=== PATIENT | female | born 1930 | race Caucasian/White ===

== ENCOUNTER 2016-12-27 11:03 | Inpatient (IN) | payer OTHER ==
[~2016-12-27] VITALS: Ht 147.3 cm; Wt 60.5 kg
[2016-12-27] MEDS ORDERED: METOPROLOL TARTRATE 1 MG/ML VIAL IV STA ×2 (11:21→22:26)
--- NOTE | 2016-12-27 11:25 | EMERGENCY ROOM VISIT NOTE ---
History Report prepared by Chanell: Zenaida Barrow Under the Supervision of: Dr. Darlene Purvis M.D. First contact with patient: 11:16 Chief Complaint: TACHYCARDIA Stated Complaint: TACYCARDIA Nursing Triage Summary: pt to [facility] ED via EMS from home where she felt like her heart was racing yesterday and then today she felt it again. EMS found her to be HR 190 and they gave 6mg adensine and she went into a fib then her heart rate went to 170 and they gave her 10mg cardizem IVP and they also gave 900 ml NS pt has no c/o chest pain but c/o feeling flushed no SOB just c/o "feeling nervous" History of Present Illness The patient is a 86 year old female who presents to the Emergency Room via EMS with complaints of episodic heart racing that began a couple of days ago. She had one episode of heart racing a couple of days ago which resolved on its own and another episode today when she called EMS. Today's episode seemed to be worse and would not go away. In the field, her heart rate was found to be 190. She was given 6 mg Adenosine en route. Currently, she is feeling slightly dizzy. She also complains of sinus congestion over the past several days for which she has been using Sinex and allergy medications without much relief. Denies fever, shortness of breath, or other complaints. She is on Lisinopril for hypertension. She is a former smoker of 25 years. Source of History: patient Onset: a couple days ago Position: other (cardiac) Quality: other (heart racing) Timing: other (episodic) Note: Other symptoms: dizziness, sinus congestion Review of Systems See HPI for pertinent positives & negatives. A total of 10 systems reviewed and were otherwise negative. Past Medical & Surgical Medical Problems: (1) Hypertension Family History Noncontributory secondary to age. Social History Smoking Status: Former Smoker Marital Status: Housing Status: lives alone Occupation Status: retired Current/Historical Medications Scheduled Lisinopril (Zestril), 5 MG PO DAILY Lutein-Zeaxanthin (Lutein), 1 TAB PO DAILY Misc Natural Products (Osteo Bi-Flex Advanced Do), 1 TAB PO DAILY Multiple Vitamins W/ Minerals (Centrum), 1 TAB PO DAILY Ubiquinol-Vitamin C (Active-Q), 1 TAB PO DAILY Vitamin E (E 1000), 1,000 UNIT PO DAILY Miscellaneous Medications Estrogens, Conjugated (Premarin) Allergies Coded Allergies: No Known Allergies (Unverified , 12/27/16) Physical Exam Vital Signs Date Time Temp Pulse Resp B/P Pulse Ox O2 Delivery O2 Flow Rate FiO2 12/27/16 15:30 77 22 191/108 97 2.0 12/27/16 14:45 98 22 191/112 99 Room Air 2.0 12/27/16 13:27 89 178/87 97 12/27/16 13:07 78 12/27/16 13:02 72 22 168/118 98 2.0 12/27/16 12:45 94 Nasal Cannula 2.0 12/27/16 12:44 84 Room Air 12/27/16 12:36 95 24 193/111 93 Room Air 12/27/16 12:07 80 24 177/97 96 12/27/16 11:52 87 22 187/102 96 12/27/16 11:42 115 180/94 12/27/16 11:41 117 180/94 96 Room Air 12/27/16 11:18 112 12/27/16 11:09 36.8 102 24 165/130 97 Room Air Physical Exam Vital signs reviewed. General: Elderly, well-appearing 86 year old female, in no significant distress. HEENT: No scleral icterus, PERRLA, neck supple. Atraumatic. Cardiovascular: Tachycardic rate and irregular rhythm, no extra sounds. Pulmonary: Crackles at the bases auscultation bilaterally, normal work of breathing. Abdomen: Soft, nontender, nondistended, positive bowel sounds. Musculoskeletal: Atraumatic, no peripheral edema. Neurologic: Patient awake alert and oriented x 3, full strength in all 4 extremities. Cranial nerves 2 through 12 grossly intact. Skin: Warm, dry, no rash Medical Decision & Procedures ER Provider Diagnostic Interpretation: Radiology results as stated below per my review and radiologist interpretation: CHEST ONE VIEW PORTABLE CLINICAL HISTORY: Rapid A. fib. Tachycardia. COMPARISON STUDY: No previous studies for comparison. FINDINGS: The heart is enlarged. There is tortuosity and aneurysmal dilatation of the thoracic aorta. There is age-indeterminate essential thickening. There is no lobar consolidation. No pleural effusions are visualized on conventional radiographic imaging.[ IMPRESSION: 1. Cardiomegaly and age-indeterminate interstitial thickening/edema 2. No evidence of lobar consolidation 3. Tortuosity and aneurysmal dilatation of the thoracic aorta Electronically signed by: Eloy Zaragoza M.D. 12/27/2016 12:23 PM Dictated Date/Time: 12/27/2016 12:[address] ANGIOGRAM OF THE CHEST COMBO CLINICAL HISTORY: Tachycardia. Aneurysm. COMPARISON STUDY: Chest x-ray dated 12/27/2016. TECHNIQUE: Before and following the IV administration of 119 cc of Optiray 320, CT angiogram of the chest was performed from the thoracic inlet to the upper abdomen utilizing the dissection protocol. Images are reviewed in the axial, sagittal, and coronal planes. 3-D MIPS images are created and assessed. IV contrast was administered without complication. CT DOSE: 499.63 mGy.cm FINDINGS: Thyroid: Imaged portions of the thyroid gland are normal in size and attenuation. Thoracic aorta: No intramural hematoma is seen on the unenhanced series. There is atherosclerotic calcification of the thoracic aorta. There is mild aneurysmal dilatation of the ascending thoracic aorta which measures up to 4.1 cm. The aortic arch is normal in caliber, measuring up to 2.9 cm in diameter. There is a large aneurysm of the tortuous descending thoracic aorta which extends at least 20 cm in craniocaudal length. This measures up to 5.0 cm just distal to the takeoff of the left subclavian artery. The proximal descending thoracic aorta measures up to 6.4 cm, the mid descending thoracic aorta measures up to 5.9 cm, the distal descending thoracic aorta measures up to 5.2 cm, and the aorta measures up to 3.6 cm at the diaphragmatic hiatus. There is intraluminal thrombus identified within the aneurysm sac proximally. No dissection is seen. The arch demonstrates standard 3-vessel anatomy and the arch vessels are widely patent. Pulmonary vasculature: The main pulmonary arteries are mildly dilated suggesting pulmonary artery hypertension. There are no central filling defects identified in the pulmonary vessels to suggest pulmonary embolus. Note that this examination was not specifically protocoled to assess for pulmonary emboli. Heart: The heart is enlarged and without pericardial effusion. There is lipomatous hypertrophy of the interatrial septum. The coronary arteries are densely calcified. There is diminished attenuation of the cardiac blood pool as compared to the myocardium suggesting anemia. Lungs and pleural spaces: There is diffuse subpleural reticulation and interstitial thickening throughout both lungs. No airspace consolidation is seen typical for pneumonia. There is trace pleural fluid at the right lung base. No left pleural effusion is seen. Dependent atelectasis is observed. A 6 cm calcification containing nodule is noted in the right apex on image #59. The trachea and central airways are clear. Mediastinum: Scattered subcentimeter mediastinal lymph nodes are not pathologically enlarged by size criteria. Gale: Clear. Axillae: There is no axillary lymphadenopathy. Upper abdomen: There is a large hiatal hernia, with over half of the stomach located in the thoracic cavity. The visualized kidneys to insert cortical atrophy. There is fatty atrophy of the partially imaged pancreas. The visualized upper abdominal aorta is normal in caliber. A subcentimeter cyst is noted in the left lobe of liver. Skeletal structures: The skeletal structures are osteopenic. Degenerative change and hyperkyphosis is noted the thoracic spine. Advanced arthritic change is seen in the shoulders. No lytic or blastic bony lesions are seen. IMPRESSION: 1. 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 This measures up to 6.4 cm in diameter. Vascular surgery assessment is recommended. 2. No dissection is seen and there is no evidence of aneurysm rupture. 3. There is trace pleural fluid at the right lung base adjacent to the aneurysm sac. This is nonspecific and likely reactive. Minimal leakage from the aneurysm would be impossible to exclude but is considered unlikely if there is no history of chest pain. 4. Chronic interstitial changes as above. No airspace consolidation is seen typical for pneumonia. 5. Cardiomegaly. 6. Large hiatal hernia. 7. Additional findings as above. Electronically signed by: Bola Martinez M.D. 12/27/2016 1:55 PM Dictated Date/Time: 12/27/2016 1:31 PM Laboratory Results Test 12/27/16 11:15 12/27/16 11:41 12/27/16 11:59 Immature Granulocyte % (Auto) 0.2 % White Blood Count 8.31 K/uL (4.8-10.8) Red Blood Count 4.15 M/uL (4.2-5.4) Hemoglobin 10.9 g/dL (12.0-16.0) Hematocrit 34.1 % (37-47) Mean Corpuscular Volume 82.2 fL (80-100) Mean Corpuscular Hemoglobin 26.3 pg (25-34) Mean Corpuscular Hemoglobin Concent 32.0 g/dl (32-36) Platelet Count 365 K/uL (130-400) Mean Platelet Volume 8.5 fL (7.4-10.4) Neutrophils (%) (Auto) 80.9 % Lymphocytes (%) (Auto) 11.6 % Monocytes (%) (Auto) 6.4 % Eosinophils (%) (Auto) 0.4 % Basophils (%) (Auto) 0.5 % Neutrophils # (Auto) 6.73 K/uL (1.4-6.5) Lymphocytes # (Auto) 0.96 K/uL (1.2-3.4) Monocytes # (Auto) 0.53 K/uL (0.11-0.59) Eosinophils # (Auto) 0.03 K/uL (0-0.5) Basophils # (Auto) 0.04 K/uL (0-0.2) Immature Granulocyte # (Auto) 0.02 K/uL (0.00-0.02) Prothrombin Time 12.0 SECONDS (9.0-12.0) Prothromb Time International Ratio 1.1 (0.9-1.1) Activated Partial Thromboplast Time 28.4 SECONDS (21.0-31.0) Partial Thromboplastin Ratio 1.1 Iron Level 23 mcg/dl (35-150) Total Iron Binding Capacity 392 mcg/dl (250-450) Transferrin 301 mg/dl (200-360) Transferrin % Saturation 5 % (15-50) Ferritin 14.6 ng/ml (8.0-388.0) Total Bilirubin 0.3 mg/dl (0.2-1) Direct Bilirubin < 0.1 mg/dl (0-0.2) Aspartate Amino Transf (AST/SGOT) 17 U/L (15-37) Alanine Aminotransferase (ALT/SGPT) 14 U/L (12-78) Alkaline Phosphatase 109 U/L (45-117) Total Creatine Kinase 34 U/L (26-192) Total Protein 7.4 gm/dl (6.4-8.2) Albumin 3.7 gm/dl (3.4-5.0) Bedside Troponin I 0.000 ng/ml (0-0.045) Urine Color YELLOW Urine Appearance CLEAR (CLEAR) Urine pH >= 9.0 (4.5-7.5) Urine Specific [place] 1.005 (1.000-1.030) Urine Protein NEG (NEG) Urine Glucose (UA) NEG (NEG) Urine Ketones TRACE (NEG) Urine Occult Blood NEG (NEG) Urine Nitrite NEG (NEG) Urine Bilirubin NEG (NEG) Urine Urobilinogen NEG (NEG) Urine Leukocyte Esterase MODERATE (NEG) Urine WBC (Auto) 5-10 /hpf (0-5) Urine RBC (Auto) 0-4 /hpf (0-4) Urine Hyaline Casts (Auto) 1-5 /lpf (0-5) Urine Epithelial Cells (Auto) >30 /lpf (0-5) Urine Bacteria (Auto) NEG (NEG) Urine Renal Epithelial Cells /lpf (0-5) Urine Yeast (Auto) PRESENT (NONE PRSENT) Laboratory results per my review. Medications Administered Medications (Trade) Dose Ordered Sig/Sandra Route Start Time Stop Time Status Last Admin Dose Admin Metoprolol Tartrate (Lopressor Iv) 5 mg NOW STAT IV 12/27/16 11:21 12/27/16 11:23 DC 12/27/16 11:42 5 MG Ondansetron HCl (Zofran Inj) 4 mg NOW STAT IV 12/27/16 12:35 12/27/16 12:36 DC 12/27/16 12:39 4 MG Ondansetron HCl (Zofran Inj) 4 mg Q6H PRN IV 12/27/16 16:00 01/26/17 15:59 12/28/16 01:21 4 MG ECG Indication: tachycardia Rate (beats per minute): 113 Rhythm: atrial fibrillation (with RVR) Findings: no acute ischemic change, other (QTc 466) ED Course 1120: I took Medic Command while the patient was en route for administration of Adenosine and Cardizem. Past medical records reviewed. The patient was evaluated in room C10. A complete history and physical examination was performed. Ordered Lopressor 5 mg IV. 1235: Ordered Zofran Inj 4 mg IV. 1418: I discussed the case with Brandy Hi PA-C - Vascular Surgery. 1427: I reassessed the patient. I discussed laboratory and radiographic results with her and recommended transfer to [facility]. She states that she has no support system locally and is apprehensive about transfer. She understands the risk of staying at our facility without cardiothoracic surgery. The patient will be evaluated for further management and care. 3341: I discussed the case with Dr. Moraima SHER Hospitalist. The patient will be evaluated for further management. Medical Decision Differential diagnosis: Etiologies such as premature contractions, electrolyte abnormality, cardiac dysrhythmia, thyroid dysfunction, pulmonary embolism, infection, gastrointestinal, as well as others were entertained. This patient was evaluated and appeared to be in no significant distress. IV access was obtained and laboratory work was drawn. Patient was placed on quality assurance monitor final and found to be in a rapid atrial fibrillation versus SVT. The patient was given adenosine in route which revealed an atrial fibrillation. The patient seemed to revert to this rapid tachycardia that seems to be fairly regular. She was given 5 mg of IV metoprolol with good result. Chest x-ray is clear by reveals a large thoracic aneurysm. A chest CT was performed and reveals a large thoracic aneurysm but no evidence of rupture. The patient was informed of the findings. I did speak with vascular surgery GUNNAR, who has stated she will need cardiothoracic surgery if she desires to have this repaired. The patient will be admitted by internal medicine hospitalist service with vascular surgery consultation. The patient states she has no friends or family in the area and does not desire to be transferred for cardiothoracic evaluation at this time. The patient's laboratory work is fairly unrevealing. It seems that the atrial fibrillation is related to the aneurysm. Consults Time Called: 1415 Consulting Physician: Brandy Hi PA-C - Vascular Surgery Returned Call: 1413 I discussed the case with her. Additional Consults: Time Called: 1447 Consulted Physician: Dr. Moraima SHER Hospitalist Returned Call: [phone] Additional Comments: I discussed the case with him. The patient will be evaluated for further management. Impression Primary Impression: New onset atrial fibrillation Additional Impression: Thoracic aortic aneurysm Scribe Attestation The scribe's documentation has been prepared under my direction and personally reviewed by me in its entirety. I confirm that the note above accurately reflects all work, treatment, procedures, and medical decision making performed by me. Departure Information Dispostion Being Evaluated By Hospitalist Referrals Onur Heath M.D. (PCP) Patient Instructions My [facility] Problem Qualifiers Additional Impression: Thoracic aortic aneurysm Presence of rupture: without rupture Qualified Codes: I71.2 - Thoracic aortic aneurysm, without rupture
[2016-12-27 11:40] LABS: BASO % 0.5 %; BASO ABS # 0.04 K/uL (0-0.2); COMPLETE YES; EOS % 0.4 %; HEMATOCRIT 34.1 % (37-47); IG% 0.2 %; LYMPH % 11.6 %; LYMPH ABS # 0.96 K/uL (1.2-3.4); MEAN CELL VOLUME 82.2 fL (80-100); MEAN CORPUSCULAR HEMOGLOBIN 26.3 pg (25-34); MEAN PLATELET VOLUME 8.5 fL (7.4-10.4); MONO % 6.4 %; NEUT % 80.9 %; PLATELET COUNT 365 K/uL (130-400); RED BLOOD COUNT 4.15 M/uL (4.2-5.4); WHITE BLOOD COUNT 8.31 K/uL (4.8-10.8)
[2016-12-27 11:47] LABS: ALT/SGPT 14 U/L (12-78); BLOOD UREA NITROGEN 13 mg/dl (7-18); CALCIUM 9.4 mg/dl (8.5-10.1); CARBON DIOXIDE 25 mmol/L (21-32); CHLORIDE 106 mmol/L (98-107); CREATININE 0.82 mg/dl (0.60-1.20); GLUCOSE 146 mg/dl (70-99); POTASSIUM 4.1 mmol/L (3.5-5.1); SODIUM 142 mmol/L (136-145)
[2016-12-27 11:48] LABS: INR 1.1 (0.9-1.1); PARTIAL THROMBOPLASTIN RATIO 1.1
[2016-12-27 11:53] LABS: ALKALINE PHOSPHATASE 109 U/L (45-117); AST/SGOT 17 U/L (15-37); CKMB/CK RATIO 1.8 (0-3.0)
[2016-12-27] MEDS ORDERED: LUTE15CA PO (12:12)
[2016-12-27] MEDS ORDERED: [UNRECOGNIZED DRUG - CODE] PO (12:12)
[2016-12-27] MEDS ORDERED: VITA1CAP4 PO (12:12)
[2016-12-27] MEDS ORDERED: MULTTAB5 PO (12:12)
[2016-12-27] MEDS ORDERED: LISI-729 PO (12:12)
[2016-12-27] MEDS ORDERED: PRMVC TOP (12:12)
[2016-12-27] MEDS ORDERED: MISCTAB78 PO (12:12)
--- NOTE | 2016-12-27 12:24 | DIAGNOSTIC IMAGING REPORT ---
CHEST ONE VIEW PORTABLE CLINICAL HISTORY: Rapid A. fib. Tachycardia. COMPARISON STUDY: No previous studies for comparison. FINDINGS: The heart is enlarged. There is tortuosity and aneurysmal dilatation of the thoracic aorta. There is age-indeterminate essential thickening. There is no lobar consolidation. No pleural effusions are visualized on conventional radiographic imaging.[ IMPRESSION: 1. Cardiomegaly and age-indeterminate interstitial thickening/edema 2. No evidence of lobar consolidation 3. Tortuosity and aneurysmal dilatation of the thoracic aorta Electronically signed by: Eloy Zaragoza M.D. 12/27/2016 12:23 PM Dictated Date/Time: 12/27/2016 12:22 PM
[2016-12-27] MEDS ORDERED: ONDANSETRON INJ 2 MG/ML 2 ML VIAL IV STA (12:35)
[2016-12-27] MEDS ORDERED: OPTIRAY 320 IV PRN (13:30)
--- NOTE | 2016-12-27 13:56 | DIAGNOSTIC IMAGING REPORT ---
CT ANGIOGRAM OF THE CHEST COMBO CLINICAL HISTORY: Tachycardia. Aneurysm. COMPARISON STUDY: Chest x-ray dated 12/27/2016. TECHNIQUE: Before and following the IV administration of 119 cc of Optiray 320, CT angiogram of the chest was performed from the thoracic inlet to the upper abdomen utilizing the dissection protocol. Images are reviewed in the axial, sagittal, and coronal planes. 3-D MIPS images are created and assessed. IV contrast was administered without complication. CT DOSE: 499.63 mGy.cm FINDINGS: Thyroid: Imaged portions of the thyroid gland are normal in size and attenuation. Thoracic aorta: No intramural hematoma is seen on the unenhanced series. There is atherosclerotic calcification of the thoracic aorta. There is mild aneurysmal dilatation of the ascending thoracic aorta which measures up to 4.1 cm. The aortic arch is normal in caliber, measuring up to 2.9 cm in diameter. There is a large aneurysm of the tortuous descending thoracic aorta which extends at least 20 cm in craniocaudal length. This measures up to 5.0 cm just distal to the takeoff of the left subclavian artery. The proximal descending thoracic aorta measures up to 6.4 cm, the mid descending thoracic aorta measures up to 5.9 cm, the distal descending thoracic aorta measures up to 5.2 cm, and the aorta measures up to 3.6 cm at the diaphragmatic hiatus. There is intraluminal thrombus identified within the aneurysm sac proximally. No dissection is seen. The arch demonstrates standard 3-vessel anatomy and the arch vessels are widely patent. Pulmonary vasculature: The main pulmonary arteries are mildly dilated suggesting pulmonary artery hypertension. There are no central filling defects identified in the pulmonary vessels to suggest pulmonary embolus. Note that this examination was not specifically protocoled to assess for pulmonary emboli. Heart: The heart is enlarged and without pericardial effusion. There is lipomatous hypertrophy of the interatrial septum. The coronary arteries are densely calcified. There is diminished attenuation of the cardiac blood pool as compared to the myocardium suggesting anemia. Lungs and pleural spaces: There is diffuse subpleural reticulation and interstitial thickening throughout both lungs. No airspace consolidation is seen typical for pneumonia. There is trace pleural fluid at the right lung base. No left pleural effusion is seen. Dependent atelectasis is observed. A 6 cm calcification containing nodule is noted in the right apex on image #59. The trachea and central airways are clear. Mediastinum: Scattered subcentimeter mediastinal lymph nodes are not pathologically enlarged by size criteria. Gale: Clear. Axillae: There is no axillary lymphadenopathy. Upper abdomen: There is a large hiatal hernia, with over half of the stomach located in the thoracic cavity. The visualized kidneys to insert cortical atrophy. There is fatty atrophy of the partially imaged pancreas. The visualized upper abdominal aorta is normal in caliber. A subcentimeter cyst is noted in the left lobe of liver. Skeletal structures: The skeletal structures are osteopenic. Degenerative change and hyperkyphosis is noted the thoracic spine. Advanced arthritic change is seen in the shoulders. No lytic or blastic bony lesions are seen. IMPRESSION: 1. 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 This measures up to 6.4 cm in diameter. Vascular surgery assessment is recommended. 2. No dissection is seen and there is no evidence of aneurysm rupture. 3. There is trace pleural fluid at the right lung base adjacent to the aneurysm sac. This is nonspecific and likely reactive. Minimal leakage from the aneurysm would be impossible to exclude but is considered unlikely if there is no history of chest pain. 4. Chronic interstitial changes as above. No airspace consolidation is seen typical for pneumonia. 5. Cardiomegaly. 6. Large hiatal hernia. 7. Additional findings as above. Electronically signed by: Bola Martinez M.D. 12/27/2016 1:55 PM Dictated Date/Time: 12/27/2016 1:31 PM
[2016-12-27] MEDS ORDERED: ALUMINUM/MAGNESIUM/SIMETH (MAALOX MAX) 30 ML UDC PO PRN (16:00)
[2016-12-27] MEDS ORDERED: POLYETHYLENE (MIRALAX) 17 GM PACK PO PRN (16:00)
[2016-12-27] MEDS ORDERED: METOPROLOL TARTRATE 1 MG/ML VIAL IV PRN (16:00)
[2016-12-27] MEDS ORDERED: ACETAMINOPHEN 325 MG TAB PO PRN (16:00)
[2016-12-27] MEDS ORDERED: MAGNESIUM HYDROXIDE SUSP 30 ML UDC PO PRN (16:00)
[2016-12-27] MEDS ORDERED: NITROGLYCERIN 0.4 MG SL PER TAB CHARGE SL PRN (16:00)
--- NOTE | 2016-12-27 16:22 | History and Physical ---
History & Physical Date & Time of Service: Dec 27, 2016 at 16:07 Chief Complaint: Tacycardia Primary Care Physician: Onur Heath M.D. History of Present Illness Source: patient Patient is a pleasant 86-year-old female, with past medical history of hypertension, who presented to the ED today because of chest palpitations. Per patient, over the last couple of days she has felt dizzy. She thought this was due to her sinuses. Today, she started to experience palpitations so she called EMS. In the ED patient was found to be in A. fib with RVR. She was given IV Lopressor 5 mg with rate improvement. Patient saw her PCP in October- at this time, PCP recommended patient have EKG and follow-up with cardiology because of irregular heartbeat. Patient denied any further evaluation at that time. 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 Currently, patient states she is feeling well, a little anxious with everything going on at present. Patient denies any fever, chills, sweats, lightheadedness, vision changes, CP, edema, SOB, wheezing, cough, abdominal pain , nausea, vomiting, diarrhea, urinary symptoms, melena, numbness/tingling, weakness, muscle/joint pain, depression, active bleeding, or new skin discoloration/changes. Past Medical/Surgical History Medical Problems: 1. HTN Family History 1. Cardiac hx 2. HTN Social History Smoking Status: Former Smoker Smokeless Tobacco Use: No Alcohol Use: none Marital Status: Housing status: lives alone Occupational Status: retired Multi-Drug Resistant Organisms History of MDRO: No Allergies Coded Allergies: No Known Allergies (Unverified , 12/27/16) Home Medications Scheduled Lisinopril (Zestril), 5 MG PO DAILY Lutein-Zeaxanthin (Lutein), 1 TAB PO DAILY Misc Natural Products (Osteo Bi-Flex Advanced Do), 1 TAB PO DAILY Multiple Vitamins W/ Minerals (Centrum), 1 TAB PO DAILY Ubiquinol-Vitamin C (Active-Q), 1 TAB PO DAILY Vitamin E (E 1000), 1,000 UNIT PO DAILY Miscellaneous Medications Estrogens, Conjugated (Premarin) Physical Exam Vital Signs Date Time Temp Pulse Resp B/P Pulse Ox O2 Delivery O2 Flow Rate FiO2 12/27/16 15:30 77 22 191/108 97 2.0 12/27/16 14:45 98 22 191/112 99 Room Air 2.0 12/27/16 13:27 89 178/87 97 12/27/16 13:07 78 12/27/16 13:02 72 22 168/118 98 2.0 12/27/16 12:45 94 Nasal Cannula 2.0 12/27/16 12:44 84 Room Air 12/27/16 12:36 95 24 193/111 93 Room Air 12/27/16 12:07 80 24 177/97 96 12/27/16 11:52 87 22 187/102 96 12/27/16 11:42 115 180/94 12/27/16 11:41 117 180/94 96 Room Air 12/27/16 11:18 112 12/27/16 11:09 36.8 102 24 165/130 97 Room Air General Appearance: no apparent distress Head: normocephalic, atraumatic Eyes: normal inspection, PERRL ENT: hearing grossly normal Neck: supple Respiratory/Chest: lungs clear, no respiratory distress, no accessory muscle use Cardiovascular: normal peripheral pulses, + systolic murmur, + irregularly irregular Abdomen/GI: normal bowel sounds, non tender, soft Back: normal inspection Extremities/Musculoskelatal: no calf tenderness, no pedal edema Neurologic/Psych: alert, normal mood/affect, oriented x 3 Skin: warm/dry, no rash, + pallor Diagnostics Laboratory Results Results Past 24 Hours Test 12/27/16 11:15 12/27/16 11:41 Range/Units White Blood Count 8.31 4.8-10.8 K/uL Red Blood Count 4.15 4.2-5.4 M/uL Hemoglobin 10.9 12.0-16.0 g/dL Hematocrit 34.1 37-47 % Mean Corpuscular Volume 82.2 80-100 fL Mean Corpuscular Hemoglobin 26.3 25-34 pg Mean Corpuscular Hemoglobin Concent 32.0 32-36 g/dl Platelet Count 365 130-400 K/uL Mean Platelet Volume 8.5 7.4-10.4 fL Neutrophils (%) (Auto) 80.9 % Lymphocytes (%) (Auto) 11.6 % Monocytes (%) (Auto) 6.4 % Eosinophils (%) (Auto) 0.4 % Basophils (%) (Auto) 0.5 % Neutrophils # (Auto) 6.73 1.4-6.5 K/uL Lymphocytes # (Auto) 0.96 1.2-3.4 K/uL Monocytes # (Auto) 0.53 0.11-0.59 K/uL Eosinophils # (Auto) 0.03 0-0.5 K/uL Basophils # (Auto) 0.04 0-0.2 K/uL RDW Standard Deviation 44.4 36.4-46.3 fL RDW Coefficient of Variation 14.7 11.5-14.5 % Immature Granulocyte % (Auto) 0.2 % Immature Granulocyte # (Auto) 0.02 0.00-0.02 K/uL Prothrombin Time 12.0 9.0-12.0 SECONDS Prothromb Time International Ratio 1.1 0.9-1.1 Activated Partial Thromboplast Time 28.4 21.0-31.0 SECONDS Partial Thromboplastin Ratio 1.1 Sodium Level 142 136-145 mmol/L Potassium Level 4.1 3.5-5.1 mmol/L Chloride Level 106 98-107 mmol/L Carbon Dioxide Level 25 21-32 mmol/L Anion Gap 11.0 3-11 mmol/L Blood Urea Nitrogen 13 7-18 mg/dl Creatinine 0.82 0.60-1.20 mg/dl Est Creatinine Clear Calc Drug Dose 39.9 ml/min Estimated GFR () 75.1 Estimated GFR (Non- 64.8 BUN/Creatinine Ratio 16.0 10-20 Random Glucose 146 70-99 mg/dl Calcium Level 9.4 8.5-10.1 mg/dl Magnesium Level 2.0 1.8-2.4 mg/dl Total Bilirubin 0.3 0.2-1 mg/dl Direct Bilirubin < 0.1 0-0.2 mg/dl Aspartate Amino Transf (AST/SGOT) 17 15-37 U/L Alanine Aminotransferase (ALT/SGPT) 14 12-78 U/L Alkaline Phosphatase 109 45-117 U/L Total Creatine Kinase 34 26-192 U/L Creatine Kinase MB 0.6 0.5-3.6 ng/ml Creatine Kinase MB Ratio 1.8 0-3.0 Total Protein 7.4 6.4-8.2 gm/dl Albumin 3.7 3.4-5.0 gm/dl Bedside Troponin I 0.000 0-0.045 ng/ml Diagnostic Radiology CHEST ONE VIEW PORTABLE CLINICAL HISTORY: Rapid A. fib. Tachycardia. COMPARISON STUDY: No previous studies for comparison. FINDINGS: The heart is enlarged. There is tortuosity and aneurysmal dilatation of the thoracic aorta. There is age-indeterminate essential thickening. There is no lobar consolidation. No pleural effusions are visualized on conventional radiographic imaging.[ IMPRESSION: 1. Cardiomegaly and age-indeterminate interstitial thickening/edema 2. No evidence of lobar consolidation 3. Tortuosity and aneurysmal dilatation of the thoracic aorta Electronically signed by: Eloy Zaragoza M.D. 12/27/2016 12:23 PM Dictated Date/Time: 12/27/2016 12:22 PM The status of this report is Signed. Draft = Not yet reviewed or approved by Radiologist. Signed = Reviewed and approved by Radiologist. CT ANGIOGRAM OF THE CHEST COMBO CLINICAL HISTORY: Tachycardia. Aneurysm. COMPARISON STUDY: Chest x-ray dated 12/27/2016. TECHNIQUE: Before and following the IV administration of 119 cc of Optiray 320, CT angiogram of the chest was performed from the thoracic inlet to the upper abdomen utilizing the dissection protocol. Images are reviewed in the axial, sagittal, and coronal planes. 3-D MIPS images are created and assessed. IV contrast was administered without complication. CT DOSE: 499.63 mGy.cm FINDINGS: Thyroid: Imaged portions of the thyroid gland are normal in size and attenuation. Thoracic aorta: No intramural hematoma is seen on the unenhanced series. There is atherosclerotic calcification of the thoracic aorta. There is mild aneurysmal dilatation of the ascending thoracic aorta which measures up to 4.1 cm. The aortic arch is normal in caliber, measuring up to 2.9 cm in diameter. There is a large aneurysm of the tortuous descending thoracic aorta which extends at least 20 cm in craniocaudal length. This measures up to 5.0 cm just distal to the takeoff of the left subclavian artery. The proximal descending thoracic aorta measures up to 6.4 cm, the mid descending thoracic aorta measures up to 5.9 cm, the distal descending thoracic aorta measures up to 5.2 cm, and the aorta measures up to 3.6 cm at the diaphragmatic hiatus. There is intraluminal thrombus identified within the aneurysm sac proximally. No dissection is seen. The arch demonstrates standard 3-vessel anatomy and the arch vessels are widely patent. Pulmonary vasculature: The main pulmonary arteries are mildly dilated suggesting pulmonary artery hypertension. There are no central filling defects identified in the pulmonary vessels to suggest pulmonary embolus. Note that this examination was not specifically protocoled to assess for pulmonary emboli. Heart: The heart is enlarged and without pericardial effusion. There is lipomatous hypertrophy of the interatrial septum. The coronary arteries are densely calcified. There is diminished attenuation of the cardiac blood pool as compared to the myocardium suggesting anemia. Lungs and pleural spaces: There is diffuse subpleural reticulation and interstitial thickening throughout both lungs. No airspace consolidation is seen typical for pneumonia. There is trace pleural fluid at the right lung base. No left pleural effusion is seen. Dependent atelectasis is observed. A 6 cm calcification containing nodule is noted in the right apex on image #59. The trachea and central airways are clear. Mediastinum: Scattered subcentimeter mediastinal lymph nodes are not pathologically enlarged by size criteria. Gale: Clear. Axillae: There is no axillary lymphadenopathy. Upper abdomen: There is a large hiatal hernia, with over half of the stomach located in the thoracic cavity. The visualized kidneys to insert cortical atrophy. There is fatty atrophy of the partially imaged pancreas. The visualized upper abdominal aorta is normal in caliber. A subcentimeter cyst is noted in the left lobe of liver. Skeletal structures: The skeletal structures are osteopenic. Degenerative change and hyperkyphosis is noted the thoracic spine. Advanced arthritic change is seen in the shoulders. No lytic or blastic bony lesions are seen. IMPRESSION: 1. 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 This measures up to 6.4 cm in diameter. Vascular surgery assessment is recommended. 2. No dissection is seen and there is no evidence of aneurysm rupture. 3. There is trace pleural fluid at the right lung base adjacent to the aneurysm sac. This is nonspecific and likely reactive. Minimal leakage from the aneurysm would be impossible to exclude but is considered unlikely if there is no history of chest pain. 4. Chronic interstitial changes as above. No airspace consolidation is seen typical for pneumonia. 5. Cardiomegaly. 6. Large hiatal hernia. 7. Additional findings as above. Electronically signed by: Bola Martinez M.D. 12/27/2016 1:55 PM Dictated Date/Time: 12/27/2016 1:31 PM The status of this report is Signed. Draft = Not yet reviewed or approved by Radiologist. Signed = Reviewed and approved by Radiologist. EKG MONSERRAT AGUIRRE ID:[id number] 27-DEC-2016 11:09:21 [facility] Atrial fibrillation with rapid ventricular response Minimal voltage criteria for LVH, may be normal variant Poor R wave progression, consider anterior MA vs. lead placement vs. LVH Abnormal ECG No previous ECGs available Confirmed by Kamron Wells ([id number]) on 12/27/2016 1:54:39 PM 25mm/s 10mm/mV 150Hz 8.0 SP2 12SL 241 HD RENA: 12 Referred by: Confirmed By: Kamron Wells Vent. rate 113 BPM HI interval * ms QRS duration 96 ms QT/QTc 340/466 ms P-R-T axes * -1930 (86 yr) Female Room:[facility] [place] Loc: Transcribing Machine Mechanic:ZAID Hagan ind: Impression Assessment and Plan 86-year-old female, with past medical history of hypertension, who presented to the ED today because of chest palpitations. New onset A. fib with RVR--> pt given 5 mg IV Lopressor in ED x1 with rate improvement: - Admit tele for cardiac monitoring - Trend cardiac enzymes - ECHO - Start Metoprolol 12.5 mg PO daily. 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 Hold anticoagulates due to anemia and aneurysm Code status: LEVEL I, FULL- no prolonged measures Dispo: From home, lives alone Level of Care Telemetry Resuscitation Status FULL RESUSCITATION VTE Prophylaxis VTE Risk Assessment Done? Y/N: Yes Risk Level: High Given or contraindicated: T.E.D. Stockings, SCD's
[2016-12-27 16:54] LABS: FERRITIN 14.6 ng/ml (8.0-388.0)
[2016-12-27] MEDS ORDERED: METOPROLOL SUCC 25MG EXT REL TAB PO ONE (17:45)
[2016-12-27] MEDS ORDERED: METOPROLOL SUCC 25MG EXT REL TAB PO SCH (18:00)
[2016-12-27 18:27] VITALS: BP 178/93; PULSE 99; TEMP 36.7; O2SAT 94; Ht 147.3 cm; Wt 60.5 kg
[2016-12-27 19:50] LABS: URINE APPEARANCE CLEAR (CLEAR); URINE BILIRUBIN NEG (NEG); URINE COLOR YELLOW; URINE EPITHELIAL CELL AUTO >30 /lpf (0-5); URINE NITRITE NEG (NEG); URINE PH >= 9.0 (4.5-7.5); URINE SPECIFIC GRAVITY 1.005 (1.000-1.030); UROBILINOGEN NEG (NEG); ZZUR CULT IF INDIC CLEAN CATCH YES
[2016-12-27 19:53] LABS: MANUAL MICROSCOPIC REQUIRED? NO; REVIEW REQ? YES
[2016-12-27 20:00] VITALS: O2SAT 94
[2016-12-27] MEDS: METOPROLOL TARTRATE 1 MG/ML VIAL IV PRN (20:18)
[2016-12-27 20:45] VITALS: BP 157/73; O2SAT 92
[2016-12-27 21:58] VITALS: BP 164/84; PULSE 90
[2016-12-27 23:49] VITALS: BP 173/80; PULSE 72; TEMP 37.1; O2SAT 93
[2016-12-28] VITALS (11 sets, daily range): BP systolic 145–190; BP diastolic 63–99; PULSE 62–91; TEMP 36.5–37.4; O2SAT 87–97
[2016-12-28] MEDS: ENALAPRILAT IV 2.5 MG in DEXTROSE 5% 25ML 25 ML IV SCH ×4 (00:57→19:22)
[2016-12-28] MEDS: NITROGLYCERIN OINT 2% 1GM PACKET EXT SCH ×5 (00:58→19:23)
[2016-12-28] MEDS: ONDANSETRON INJ 2 MG/ML 2 ML VIAL IV PRN (01:21)
[2016-12-28] MEDS: METOPROLOL TARTRATE 1 MG/ML VIAL IV PRN ×3 (02:00→23:34)
[2016-12-28 04:44] LABS: BLOOD UREA NITROGEN 14 mg/dl (7-18); CALCIUM 8.9 mg/dl (8.5-10.1); CARBON DIOXIDE 24 mmol/L (21-32); CHLORIDE 107 mmol/L (98-107); POTASSIUM 3.6 mmol/L (3.5-5.1); SODIUM 142 mmol/L (136-145)
[2016-12-28 04:48] LABS: BUN/CREATININE RATIO 16.5 (10-20); CREATININE 0.82 mg/dl (0.60-1.20); GLUCOSE 103 mg/dl (70-99)
[2016-12-28 06:41] LABS: HEMATOCRIT 30.4 % (37-47); MEAN CELL VOLUME 81.5 fL (80-100); MEAN CORPUSCULAR HEMOGLOBIN 27.1 pg (25-34); MEAN CORPUSCULAR HGB CONC 33.2 g/dl (32-36); MEAN PLATELET VOLUME 8.2 fL (7.4-10.4); PLATELET COUNT 305 K/uL (130-400); RED BLOOD COUNT 3.73 M/uL (4.2-5.4); WHITE BLOOD COUNT 8.85 K/uL (4.8-10.8)
[2016-12-28] MEDS: CEROVITE ADV FORMULA TAB PO SCH (07:29)
[2016-12-28] MEDS: METOPROLOL SUCC 25MG EXT REL TAB PO SCH (07:29)
[2016-12-28] MEDS ORDERED: NURSING VERBAL MED ORDER ONE (08:30)
[2016-12-28] MEDS ORDERED: LISINOPRIL 5 MG TAB PO SCH (09:00)
--- NOTE | 2016-12-28 12:51 | ECHOCARDIOGRAM REPORT ---
*NOTICE TO RECEIVING DEMOCRAT AGENCY This information is strictly Confidential and protected under [place] law. [place] law prohibits you from making any further disclosure of this information unless further disclosure is expressly permitted by the written consent of the person to whom it pertains or is authorized by law. A general authorization for the release of medical or other information is not sufficient for this purpose. Hospital accepts no responsibility if the information is made available to any other person, INCLUDING THE PATIENT. Interpretation Summary * Name: MONSERRAT AGUIRRE Study Date: 12/28/2016 07:51 AM BP: 160/73 mmHg * Patient Location: C.2T\S\S243\S\1 HR: 77 * : 1930 (M/d/yyyy) Gender: Female Height: 58 in * Age: 86 yrs Ethnicity: [place] Weight: 147 lb * Ordering Physician: Neida Patrick * Referring Physician: Self, Referred * Performed By: Erica Whelan RCS * * Reason For Study: A-FIB * BSA: 1.6 m2 * -- Conclusions -- * There is borderline concentric left ventricular hypertrophy. * Left ventricular systolic function is normal. * Aortic valve sclerosis mild, without significant aortic valvular stenosis. * Mild aortic regurgitation. * There is mild to moderate mitral regurgitation. * Right ventricular systolic pressure is elevated at 50-60mmHg. * Mildly dilated ascending aorta. Procedure Details * A complete two-dimensional transthoracic echocardiogram was performed (2D, M-mode, Doppler and color flow Doppler). Left Ventricle * The left ventricle is normal in size. * There is borderline concentric left ventricular hypertrophy. * Left ventricular systolic function is normal. * Ejection Fraction = 55-60%. * The left ventricular wall motion is normal. Right Ventricle * The right ventricle is grossly normal size. * The right ventricular systolic function is normal. Atria * The left atrial size is normal. * Right atrial size is normal. Mitral Valve * The mitral valve is grossly normal. * There is mild to moderate mitral regurgitation. * The mitral regurgitant jet is posteriorly directed, which is consistent with anterior leaflet pathology. Tricuspid Valve * The tricuspid valve is not well visualized, but is grossly normal. * There is mild tricuspid regurgitation. * Right ventricular systolic pressure is elevated at 50-60mmHg. Aortic Valve * Aortic valve sclerosis mild, without significant aortic valvular stenosis. * No hemodynamically significant valvular aortic stenosis. * Mild aortic regurgitation. * There is an eccentric jet of aortic insufficiency directed against the anterior mitral leaflet. Great Vessels * The aortic root is normal size. * Mildly dilated ascending aorta. Pericardium/Pleural * There is no pericardial effusion. Left Ventricular Diastolic Function * indeterminate MMode 2D Measurements and Calculations IVSd 1.4 cm IVSs 1.8 cm LVIDd 5.5 cm LVIDs 3.7 cm LVPWd 1.3 cm LVPWs 1.5 cm IVS/LVPW 1.1 FS 33.0 % EDV(Teich) 150.5 ml ESV(Teich) 58.7 ml EF(Teich) 61.0 % EDV(cubed) 170.9 ml ESV(cubed) 51.3 ml EF(cubed) 70.0 % % IVS thick 27.0 % % LVPW thick 16.0 % LV mass(C)d 337.3 grams LV mass(C)dI 211.1 grams/m\S\2 LV mass(C)s 254.0 grams LV mass(C)sI 158.9 grams/m\S\2 SV(Teich) 91.7 ml SI(Teich) 57.4 ml/m\S\2 SV(cubed) 119.5 ml SI(cubed) 74.8 ml/m\S\2 Ao root diam 4.1 cm Ao root area 13.2 cm\S\2 ACS 2.0 cm LA dimension 3.5 cm LA/Ao 0.86 LVOT diam 2.0 cm LVOT area 3.2 cm\S\2 LVAd ap4 28.0 cm\S\2 LVLd ap4 6.0 cm EDV(MOD-sp4) 106.9 ml EDV(sp4-el) 111.2 ml LVAs ap4 19.9 cm\S\2 LVLs ap4 5.4 cm ESV(MOD-sp4) 61.7 ml ESV(sp4-el) 62.4 ml EF(MOD-sp4) 42.2 % EF(sp4-el) 43.9 % LVAd ap2 23.5 cm\S\2 LVLd ap2 5.9 cm EDV(MOD-sp2) 77.6 ml EDV(sp2-el) 79.9 ml LVAs ap2 16.4 cm\S\2 LVLs ap2 5.9 cm ESV(MOD-sp2) 39.7 ml ESV(sp2-el) 38.4 ml EF(MOD-sp2) 48.8 % EF(sp2-el) 51.9 % LVLd %diff -1.61 % EDV(MOD-bp) 90.9 ml LVLs %diff 8.6 % ESV(MOD-bp) 51.1 ml EF(MOD-bp) 43.7 % SV(MOD-sp4) 45.2 ml SI(MOD-sp4) 28.3 ml/m\S\2 SV(MOD-sp2) 37.9 ml SI(MOD-sp2) 23.7 ml/m\S\2 SV(MOD-bp) 39.7 ml SI(MOD-bp) 24.9 ml/m\S\2 SV(sp4-el) 48.8 ml SI(sp4-el) 30.5 ml/m\S\2 SV(sp2-el) 41.4 ml SI(sp2-el) 25.9 ml/m\S\2 Doppler Measurements and Calculations MV E max selma 89.5 cm/sec MV A max selma 48.0 cm/sec MV E/A 1.9 MV P1/2t max selma 95.3 cm/sec MV P1/2t 73.2 msec MVA(P1/2t) 3.0 cm\S\2 MV dec slope 381.4 cm/sec\S\2 MV dec time 0.14 sec Ao V2 max 122.8 cm/sec Ao max PG 6.0 mmHg Ao max PG (full) 1.2 mmHg NACHO(V,A) 2.9 cm\S\2 NACHO(V,D) 2.9 cm\S\2 AI max selma 406.0 cm/sec AI max PG 65.9 mmHg AI dec slope 121.0 cm/sec\S\2 AI P1/2t 982.6 msec LV V1 max PG 4.8 mmHg LV V1 max 110.0 cm/sec MR max selma 533.0 cm/sec MR max PG 113.6 mmHg TR max selma 354.3 cm/sec
--- NOTE | 2016-12-28 13:55 | Surgery Consultation ---
Consultation Date of Service Dec 28, 2016. (Brandy Hi, SHANI) Chief Complaint thoracic AA (Brandy Hi, SHANI) History of Present Illness The patient is a 86 year old female with HTN, admitted with palpitations and lightheadedness d/t a fib, seen in consultation today for thoracic AA 6.4cm maximal diameter. Pt arrived in ED yesterday d/t palpitations and a chest x ray demonstrated a thoracic aneurysm which was then eval with CT scan. CTA demonstrates ascending aortic dilation 4.2cm and descending aortic dilation 6.4cm. Pt states feeling much improved. Denies ANDREA, fever, chills, chest pain, SOB, abd pain, N/V, rest pain, claudication, other complaints. No hx of DVT. Denies fam hx of aortic aneurysm. (Brandy Hi, SHANI) Vitals Vital Signs Past 12 Hours Date Time Temp Pulse Resp B/P Pulse Ox O2 Delivery O2 Flow Rate FiO2 12/28/16 12:43 36.6 91 20 184/95 90 Room Air 12/28/16 08:45 64 176/76 97 Nasal Cannula 2.0 12/28/16 07:44 97 Nasal Cannula 2.0 12/28/16 07:36 36.5 70 160/73 87 Room Air 12/28/16 05:31 74 145/63 12/28/16 04:03 94 Room Air 12/28/16 03:44 36.8 64 18 152/66 93 Room Air 12/28/16 02:00 65 161/62 (Brandy Hi, SHANI) Allergies Coded Allergies: No Known Allergies (Unverified , 12/27/16) Home Medications Scheduled Apixaban (Eliquis), 5 MG PO BID Lisinopril (Zestril), 5 MG PO DAILY Lutein-Zeaxanthin (Lutein), 1 TAB PO DAILY Metoprolol Succinate (Metoprolol Succinate ER), 25 MG PO QAM Misc Natural Products (Osteo Bi-Flex Advanced Do), 1 TAB PO DAILY Multiple Vitamins W/ Minerals (Centrum), 1 TAB PO DAILY Ubiquinol-Vitamin C (Active-Q), 1 TAB PO DAILY Vitamin E (E 1000), 1,000 UNIT PO DAILY Miscellaneous Medications Estrogens, Conjugated (Premarin) Problem List Medical Problems: (1) Hypertension (Brandy Hi, RUDYC) Surgical / Medical History Hx Cardiac Surgery: No Hx Abdominal Surgery: No Hx Cancer Surgery: No Hx Thoracic Surgery: No Hx Orthopedic: No Hx Urinary Tract Surgery: No HX Other Surgery: Yes (Tonsillectomy (Childhood)) Past Medical/Surgical History: Hypertension (Brandy Hi, SHANI) Family History + HTN (Brandy Hi, SHANI) Social History Smoking Status: Former Smoker Hx Alcohol Use - Type & Amnt: No Hx Substance Use -Type & Amnt: No (Brandy Hi, RUDYC) Review of Systems Constitutional: No chills, No fever, No malaise Eyes: No visual changes ENMT: No sore throat Respiratory: No CORNELL, No cough, No hemoptysis, No short of breath Cardiovascular: + palpitations (improved), No chest pressure, No chest tightness, No edema, No intermittent claudication Gastrointestinal: No abdominal pain, No nausea, No vomiting Genitourinary - Female: No dysuria, No hematuria Neurologic: + dizziness (improved), No lethargy, No numbness (Brandy Hi, RUDYC) Physical Exam Additional Comments: Entire exam deferred by pt, states she is going home today. (Brandy Hi, RUDYC) Assessment and Plan ASSESSMENT and PLAN: thoracic AA Pt with large thoracic AA, no sx of rupture or dissection presently. Discussed her condition, risks, and endovascular vs open surgical approaches to thoracic AA. Dr Juarez out of town today. Will have him review CTA extensively before making any surgical recommendations and offered to discuss with pt tomorrow morning. Pt states she will not be here at that time, she is going home today. Encouraged pt to remain in hospital for further discussion and HTN control. She is agreeable to seeing Dr Juarez in office next week to discuss options. Will see pt tomorrow morning if she remains inpt. (Brandy Hi, PA-C) Patient with large thoracic aneurysm. This appears to be able to be repaired via the endovascular approach. We will have to cover the left subclavian artery and do a carotid subclavian bypass on the left. This aneurysm should be repaired at [facility] due to the complexity of the repair. She will need to have her afib controlled and have a cardiac evaluation done prior to any further treatment of her thoracic aneurysm. Thank you very much for letting me participate in the care of this patient. (Pino Juarez M.D.)
[2016-12-28] MEDS ORDERED: HydrALAZINE HCL 20 MG/ML VIAL IV. STA (13:56)
[2016-12-28] MEDS ORDERED: LISINOPRIL 20 MG TAB PO STA (14:14)
--- NOTE | 2016-12-28 14:20 | Hospitalist Progress Note ---
Hospitalist Progress Note Date of Service Dec 28, 2016. Subjective Pt evaluation today including: conversation w/ patient, physical exam, chart review, lab review, review of studies, review of inpatient medication list Patient had no acute issues overnight Blood Pressure continues to be elevated however pt is asymptomatic Denies chest pain, SOB, nausea or vomiting Constitutional: No fever Eyes: No worsening of vision ENT: No hearing loss Respiratory: No cough, No shortness of breath, No wheezing Cardiovascular: No chest pain Abdomen: No constipation, No pain, No vomiting Female : No dysuria Neurologic: No memory loss Psychiatric: No depression symptoms Heme: No abnormal bleeding/bruising Endo: No fatigue Skin: No rash Medications Current Inpatient Medications Medications (Trade) Dose Ordered Sig/Sandra Route Start Time Stop Time Status Last Admin Dose Admin Ioversol (Optiray 320) 100 ml UD PRN IV 12/27/16 13:30 12/31/16 13:29 Acetaminophen (Tylenol Tab) 650 mg Q4H PRN PO 12/27/16 16:00 01/26/17 15:59 Al Hydrox/Mg Hydrox/Simethicone (Maalox Max Susp) 15 ml Q4H PRN PO 12/27/16 16:00 01/26/17 15:59 Magnesium Hydroxide (Milk Of Magnesia Susp) 30 ml Q12H PRN PO 12/27/16 16:00 01/26/17 15:59 Ondansetron HCl (Zofran Inj) 4 mg Q6H PRN IV 12/27/16 16:00 01/26/17 15:59 12/28/16 01:21 4 MG Nitroglycerin (Nitrostat Tab) 0.4 mg UD PRN SL 12/27/16 16:00 01/26/17 15:59 Polyethylene (Miralax Powder Packet) 17 gm DAILY PRN PO 12/27/16 16:00 01/26/17 15:59 Multivitamins/ Minerals (Multivitamin W/ Minerals Tab) 1 tab DAILY PO 12/28/16 09:00 01/27/17 08:59 12/28/16 07:29 1 TAB Metoprolol Succinate (Toprol Xl Tab) 12.5 mg QAM PO 12/28/16 09:00 01/27/17 08:59 12/28/16 07:29 12.5 MG Metoprolol Tartrate 5 mg 5 mg Q4H PRN IV 12/27/16 20:00 01/26/17 19:59 12/28/16 02:00 5 MG Enalaprilat/ Dextrose (Vasotec IV/D5 25ml) 27 ml @ 100 mls/hr Q6H IV 12/28/16 01:00 01/27/17 00:59 12/28/16 12:41 100 MLS/HR Nitroglycerin (Nitroglycerin 2% Oint) 2 inch Q6H EXT 12/28/16 13:00 01/27/17 12:59 12/28/16 12:39 2 INCH Objective Vital Signs Date Time Temp Pulse Resp B/P Pulse Ox O2 Delivery O2 Flow Rate FiO2 12/28/16 13:50 89 190/99 12/28/16 12:43 36.6 91 20 184/95 90 Room Air 12/28/16 08:45 64 176/76 97 Nasal Cannula 2.0 12/28/16 07:44 97 Nasal Cannula 2.0 12/28/16 07:36 36.5 70 160/73 87 Room Air 12/28/16 05:31 74 145/63 12/28/16 04:03 94 Room Air 12/28/16 03:44 36.8 64 18 152/66 93 Room Air 12/28/16 02:00 65 161/62 12/28/16 01:23 62 176/72 Room Air 12/28/16 00:00 94 Room Air 12/27/16 23:49 37.1 72 18 173/80 93 Room Air 12/27/16 22:31 76 164/84 12/27/16 21:58 90 18 164/84 12/27/16 20:45 157/73 92 Room Air 12/27/16 20:18 91 190/106 12/27/16 20:00 94 Room Air 12/27/16 18:27 36.7 99 20 178/93 94 Nasal Cannula 2.0 12/27/16 18:15 80 159/99 99 12/27/16 17:44 86 163/86 12/27/16 17:41 81 24 150/94 98 12/27/16 17:15 83 24 182/130 97 Nasal Cannula 2.0 12/27/16 15:30 77 22 191/108 97 2.0 12/27/16 14:45 98 22 191/112 99 Room Air 2.0 Physical Exam General Appearance: WD/WN, no apparent distress Eyes: normal inspection ENT: normal ENT inspection Neck: supple, no adenopathy Respiratory/Chest: chest non-tender, lungs clear Cardiovascular: regular rate, rhythm, no edema Abdomen: normal bowel sounds, non tender Extremities: normal range of motion, non-tender 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, no motor/sensory deficits, alert, oriented x 3 Lymphatic: no adenopathy Laboratory Results Last 24 Hours Test 12/27/16 19:00 12/27/16 19:13 12/28/16 02:56 12/28/16 03:00 Creatine Kinase MB Ratio Creatine Kinase MB 1.1 ng/ml 0.9 ng/ml Troponin I 0.040 ng/ml 0.033 ng/ml White Blood Count 8.85 K/uL Red Blood Count 3.73 M/uL Hemoglobin 10.1 g/dL Hematocrit 30.4 % Mean Corpuscular Volume 81.5 fL Mean Corpuscular Hemoglobin 27.1 pg Mean Corpuscular Hemoglobin Concent 33.2 g/dl RDW Standard Deviation 43.8 fL RDW Coefficient of Variation 14.7 % Platelet Count 305 K/uL Mean Platelet Volume 8.2 fL Nucleated RBC Absolute Count (auto) 0.00 K/uL Nucleated Red Blood Cells % 0.0 % Sodium Level 142 mmol/L Potassium Level 3.6 mmol/L Chloride Level 107 mmol/L Carbon Dioxide Level 24 mmol/L Anion Gap 11.0 mmol/L Blood Urea Nitrogen 14 mg/dl Creatinine 0.82 mg/dl Est Creatinine Clear Calc Drug Dose 39.9 ml/min Estimated GFR () 75.1 Estimated GFR (Non- 64.8 BUN/Creatinine Ratio 16.5 Random Glucose 103 mg/dl Calcium Level 8.9 mg/dl Magnesium Level 2.0 mg/dl Assessment and Plan 86-year-old female, with past medical history of hypertension, who presented to the ED today because of chest palpitations. New onset A. 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 Hold anticoagulates due to anemia and aneurysm Code status: LEVEL I, FULL- no prolonged measures Dispo: Anticipate d/c home tomorrow
--- NOTE | 2016-12-28 16:06 | CARDIOLOGY CONSULTATION ---
DATE OF CONSULTATION: 12/28/2016 CHIEF COMPLAINT: Tachycardia. HISTORY OF PRESENT ILLNESS: Mrs. Sally Tucker is an 86-year-old woman without a history of cardiac disease who reported the onset of severe tachycardia early yesterday morning after awakening. The patient was at rest when this occurred. In addition to the sense of a tachycardia, the patient did experience some dizziness and perhaps some mild dyspnea. Dizziness was described as a sense of presyncope. There was no associated chest discomfort. The patient did not actually have syncope. Due to the persistent nature of her symptoms, she contacted EMS and was transported to [facility]. En route, the patient was administered 6 mg of adenosine with some change in the rhythm, but no resolution of her tachycardia. En route, the ER physician suggested the rhythm was atrial fibrillation and diltiazem was administered. In the Emergency Room, the patient had a rhythm consistent with atrial fibrillation, which later appeared to convert to sinus rhythm. The patient does not describe a sense of palpitations leading up to this event. She does not describe episodes of tachycardia, dizziness, lightheadedness, or syncope. She does not have symptoms of chest discomfort. She very rarely has a sense of mild dyspnea with exertion, which does not appear to be limiting in nature. She denies orthopnea or paroxysmal nocturnal dyspnea. It appears that the patient was seen by her usual physician recently at which time there was a suggestion of some irregularity and possible referral for additional monitoring was recommended, but the patient was not interested. In general, she is a very active individual who is engaged in many civic activities. She recently moved to a new residence, ambulatory and does not have limitations with respect to activity. PAST MEDICAL HISTORY: Hypertension. PAST SURGICAL HISTORY: None. OUTPATIENT MEDICATIONS: Include lisinopril, lutein and a variety of supplements. ALLERGIES: No known medical allergies. SOCIAL HISTORY: The patient is . She was previously employed with criminal justice social [employer] and has a master's degree from [employer]. She has a remote history of tobacco abuse, not currently smoking. Denies significant alcohol use. FAMILY HISTORY: Significant for hypertension, but no premature coronary disease. REVIEW OF SYSTEMS: A complete 10-system review of systems was performed and pertinent positives are noted in the history of present illness. She does report a sense of "allergies" or possibly a sinus infection developing since her recent move. She attributed to some environmental stimuli. She has no associated coughing. She has not had any fevers or chills. Generally, her energy level is good. She denies any significant weight loss or weight gain. She denies any swelling in her lower extremities. She denies any change in her bowel or bladder habits. PHYSICAL EXAMINATION: GENERAL: The patient does not appear to be in acute distress. She is a pleasant woman who is alert and oriented. Mood and affect were normal. She answered all questions appropriately. VITAL SIGNS: Included blood pressure of 145/63 with pulse of 74. HEENT: Her sclerae are anicteric. Pupils equal, reactive to light and accommodation. Extraocular movements were intact. NECK: Palpation of the submandibular region did not reveal any significant lymphadenopathy. The carotids are palpable bilaterally. I do not appreciate bruits on auscultation. There is no evidence of jugular venous distention. Thyroid is not enlarged. LUNGS: Auscultation of both lung granados are generally clear. There were no rales, wheezes or rhonchi. She had normal respiratory effort without use of accessory muscles. HEART: Revealed her to be in a regular rhythm. She did have a systolic ejection murmur with a very short diastolic component. The PMI, however, is not markedly displaced. ABDOMEN: Soft and nontender. EXTREMITIES: Evaluation both wrists revealed radial pulses are equal in intensity. There is no evidence of cyanosis or clubbing. Evaluation of lower extremities did not reveal any significant peripheral edema. LABORATORY STUDIES: Obtained at the [facility] included a white cell count of 8.8, hemoglobin of 10, and a platelet count of 305. Sodium is 142, potassium is 3.6, BUN was 14, and creatinine was 0.82. Magnesium is 2.0. Cardiac biomarkers were all less than the normal limit. A 12-lead EKG was obtained at the time of admission which revealed the patient to be in atrial fibrillation. Review of the EMS records suggests the initial rhythm may have been a regular tachycardia. Current telemetry is normal sinus rhythm. Echocardiogram was also obtained today, which revealed preserved left ventricular systolic function with an element of both aortic and mitral regurgitation. CT scan was obtained at that admission, which revealed a thoracic aortic aneurysm, measuring 6.5 cm in greatest dimension. ASSESSMENT AND PLAN: 1. Atrial fibrillation. The patient has well documented atrial fibrillation. This was subsequent to initial tachycardia, which was more regular. She also had adenosine administered. There was some report on an outpatient basis an irregular heart rate as well. Overall, I think she will be well served to be treated for atrial fibrillation with rate control as initiated and anticoagulation given her age and hypertension. Seems that her most concerning symptom was the tachycardia. Hopefully, with the initiation of beta blockade, we can prevent additional episodes of tachycardia. It is unclear whether she has an additional arrhythmia, more specifically reentrant tachycardia. This may have precipitated atrial fibrillation, especially in the setting of adenosine administration. However, once again given the outpatient reports of an irregular heartbeat, it would seem reasonable to treat her for atrial fibrillation, may be under recognized at times. Should she have additional episodes of significant tachycardia, EP testing could be performed in order to elucidate arrhythmias, which may be amenable to catheter based therapy. 2. Valvular heart disease. The patient has mild aortic insufficiency and mild to moderate mitral regurgitation with preserved LV systolic function and normal chamber dimensions. This can be followed longitudinally. 3. Thoracic aortic aneurysm. The size of the aneurysm is concerning. Given the patient's advanced age and more detailed discussion regarding the risks and benefits likely to be performed by vascular or thoracic surgeon. The addition of beta blockade and control of her high blood pressure would also be indicated in this setting. 4. Pulmonary hypertension. This is of unclear etiology. The degree of her valvular disease is not likely to contribute to such high pulmonary pressures and perhaps an element of diastolic dysfunction associated with her recent episode of atrial fibrillation made this artificially high and in the absence of symptoms, I think standard treatment of high blood pressure and possible reevaluation in the setting of symptoms could be considered. FINAL RECOMMENDATIONS: 1. Continuation of beta-marcin therapy on an outpatient basis. 2. Recommend initiation of anticoagulation given the patient's CHADS2-VASc. 3. Additional recommendations regarding her thoracic aneurysm by the surgical service. 4. Followup routinely in cardiology clinic in 1 month's time.
[2016-12-29] VITALS (8 sets, daily range): BP systolic 120–159; BP diastolic 62–79; PULSE 68–115; TEMP 36.8–37.2; O2SAT 94–98
[2016-12-29] MEDS: ENALAPRILAT IV 2.5 MG in DEXTROSE 5% 25ML 25 ML IV SCH ×3 (01:00→13:00)
[2016-12-29] MEDS: NITROGLYCERIN OINT 2% 1GM PACKET EXT SCH ×3 (01:12→13:00)
[2016-12-29] MEDS: ONDANSETRON INJ 2 MG/ML 2 ML VIAL IV PRN (02:39)
[2016-12-29] MEDS: METOPROLOL SUCC 25MG EXT REL TAB PO SCH (08:03)
[2016-12-29] MEDS: CEROVITE ADV FORMULA TAB PO SCH (08:04)
[2016-12-29 08:12] LABS: HEMATOCRIT 30.6 % (37-47); MEAN CELL VOLUME 81.4 fL (80-100); MEAN CORPUSCULAR HEMOGLOBIN 26.6 pg (25-34); MEAN CORPUSCULAR HGB CONC 32.7 g/dl (32-36); MEAN PLATELET VOLUME 8.2 fL (7.4-10.4); PLATELET COUNT 319 K/uL (130-400); RED BLOOD COUNT 3.76 M/uL (4.2-5.4); WHITE BLOOD COUNT 8.35 K/uL (4.8-10.8)
[2016-12-29 08:45] LABS: BUN/CREATININE RATIO 24.3 (10-20); CALCIUM 9.1 mg/dl (8.5-10.1); CREATININE 0.75 mg/dl (0.60-1.20); MAGNESIUM 2.2 mg/dl (1.8-2.4); POTASSIUM 3.3 mmol/L (3.5-5.1)
[2016-12-29] MEDS ORDERED: LISINOPRIL 20 MG TAB PO SCH (09:00)
[2016-12-29] MEDS: METOPROLOL TARTRATE 1 MG/ML VIAL IV PRN (09:50)
[2016-12-29] MEDS ORDERED: ELQ25 PO (10:10)
[2016-12-29] MEDS ORDERED: TPRSR25 PO (10:10)
[2016-12-29] MEDS ORDERED: METOPROLOL SUCC 25MG EXT REL TAB PO ONE (10:30)
[2016-12-29] MEDS ORDERED: POTASSIUM CHLORIDE 10 MEQ TABCR PO STA (10:44)
[2016-12-29] MEDS ORDERED: APIXABAN 2.5 MG TAB PO SCH (11:00)
--- NOTE | 2016-12-29 12:30 | Discharge Instructions ---
Discharge Instructions Admission Admission Date: Dec 27, 2016 at 16:05 Admission Diagnosis: New Onset Atrial Fibrillation. Discharge Care Plan - Problem: Medical Problems: (1) New onset atrial fibrillation (2) Thoracic aortic aneurysm Care Plan - Goal(s): Decrease discomfort, Improve function Care Plan - Instructions: Activity Recommendations: no limitations Recommended Home Diet: AHA Phase I (2gmNa/LoCho) Provider Instructions: Cardiology appointment January 30, 2017 at 10:15 am You will be called within the week to inform you of your appointment with the vascular surgeons for your thoracic aortic aneurysm VTE Core Measure Inpt VTE Proph given/why not?: Other Anticoagulation [facility] Recommendations: Call your doctor if: * Temperature above 101 degrees * Pain not relieved by pain medicine ordered * There is increased drainage or redness from any incision * You have any unanswered questions or concerns. Your Doctors Instructions noted above were prepared by provider Sun Bingham.
--- NOTE | 2016-12-29 15:24 | Discharge Summary ---
Discharge Summary Date of Service Dec 29, 2016. Discharge Summary Admission Date: Dec 27, 2016 at 16:05 Discharge Date: Dec 29, 2016 Discharge Disposition: Home Principal Diagnosis: Atrial fibrillation with RVR/Thoracic aortic aneurysm Consultations: Cardiology Vascular Surgery Medication Reconciliation New Medications: Apixaban (Eliquis) 2.5 Mg Tab 5 MG PO BID for 30 Days, #60 TAB Metoprolol Succinate (Metoprolol Succinate ER) 25 Mg Tabcr 25 MG PO QAM for 30 Days Continued Medications: Estrogens, Conjugated (Premarin) 14 Appln/30 Gm Cr Lisinopril (Zestril) 5 Mg Tab 5 MG PO DAILY, TAB Lutein-Zeaxanthin (Lutein) 1 Cap Cap 1 TAB PO DAILY Misc Natural Products (Osteo Bi-Flex Advanced Do) 1 Tab Tab 1 TAB PO DAILY Multiple Vitamins W/ Minerals (Centrum) 1 Tab Tab 1 TAB PO DAILY Ubiquinol-Vitamin C (Active-Q) 1 Cap Cap 1 TAB PO DAILY Vitamin E (E 1000) 1,000 Unit Cap 1000 UNIT PO DAILY Discharge Exam Review of Systems: Constitutional: No chills Eyes: No worsening of vision ENT: No unusual epistaxis Respiratory: No shortness of breath, No sputum Cardiovascular: No edema, No orthopnea Abdomen: No nausea, No pain, No vomiting Musculoskeletal: No joint pain Genitourinary - Female: No dysuria Neurologic: No memory loss, No paralysis Psychiatric: No depression symptoms Endocrine: No excessive thirst, No fatigue Physical Exam: General Appearance: WD/WN, no apparent distress Eyes: normal inspection ENT: normal ENT inspection Neck: supple, no adenopathy Respiratory/Chest: chest non-tender, lungs clear Cardiovascular: regular rate, rhythm, no edema Abdomen / GI: normal bowel sounds, non tender, soft Extremities: normal inspection, no calf tenderness 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 Admission HPI Patient is a pleasant 86-year-old female, with past medical history of hypertension, who presented to the ED today because of chest palpitations. Per patient, over the last couple of days she has felt dizzy. She thought this was due to her sinuses. Today, she started to experience palpitations so she called EMS. In the ED patient was found to be in A. fib with RVR. She was given IV Lopressor 5 mg with rate improvement. Patient saw her PCP in October- at this time, PCP recommended patient have EKG and follow-up with cardiology because of irregular heartbeat. Patient denied any further evaluation at that time. 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 Currently, patient states she is feeling well, a little anxious with everything going on at present. Patient denies any fever, chills, sweats, lightheadedness, vision changes, CP, edema, SOB, wheezing, cough, abdominal pain , nausea, vomiting, diarrhea, urinary symptoms, melena, numbness/tingling, weakness, muscle/joint pain, depression, active bleeding, or new skin discoloration/changes. New onset A. 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 Hendrickson Anemia, hgb of 10.9: - stable GI Prophylaxis: Maalox PRN, IV Zofran PRN, Colace and/or Milk of Mag PRN DVT prophylaxis: JESSICA and SCDs. Hold anticoagulates due to anemia and aneurysm Code status: LEVEL I, FULL- no prolonged measures Dispo: discharged home with cardiology and vascular surgery follow up Total Time Spent: Greater than 30 minutes This includes examination of the patient, discharge planning, medication reconciliation, and communication with other providers. Discharge Instructions Please refer to the electronic Patient Visit Report (Discharge Instructions) for additional information.
--- NOTE | 2016-12-29 19:27 | CARDIOLOGY PROGRESS NOTE ---
DATE: 12/29/2016 DATE: 12/29/2016. SUBJECTIVE: This morning I interviewed Mrs. Tucker at bedside. She claims to be feeling quite well. She has been ambulatory around the room. She denies symptoms of palpitations or lightheadedness. She has recurrent symptoms similar to what prompted her admission. PHYSICAL EXAMINATION: GENERAL: On examination she was alert and oriented. Mood and affect appeared normal. VITAL SIGNS: Her most recent vital signs include blood pressure 152/79 with pulse of 76. LUNGS: Auscultation of lung granados reveal them to be clear. There were no rales, wheezes or rhonchi. CARDIAC EXAMINATION: Revealed her to be in a normal rhythm. LABORATORY DATA: Laboratory studies obtained most recently included a white cell count of 8.3, hemoglobin of 10, platelet count of 319. Chemistry this morning included a sodium of 140, potassium 3.3, BUN was 18, creatinine was 0.75. I did review the patient's telemetry which revealed generally sinus rhythm with brief periods of SVT lasting several seconds. I did discuss her case with their primary service today. ASSESSMENT AND PLAN: 1. Atrial fibrillation. The patient did have a period of atrial fibrillation at the time of admission. This has resolved. She is currently in sinus rhythm. It is unclear whether atrial fibrillation was precipitated by the SVT and administration of adenosine. I feel this is more likely given the recurrent nature of SVT on telemetry. At this point however will continue plan for anticoagulation and re-evaluation in outpatient setting. The patient has been started on rate control therapy and this can be continued. 2. Supraventricular tachycardia. The patient does have brief periods of SVT which appears to be reentrant in nature. It may in fact be her precipitating event. She does not currently have any symptoms associated with these brief episodes, has been ambulatory without recurrent symptoms of tachycardia. My intention at this point is to monitor her on an outpatient basis and consider a catheter based therapy should she have continued episodes despite titration of her rate control medication.
== END 2016-12-29 14:10 | disposition home or self-care (01) | DRG 310 ==
LOC: ENRESERVTM → ENRESERVDT → EDBD 11:03 → C.EDC 11:04 → C.2T 16:05
PROVIDERS: ADMIT Hospitalist; ATTEND Hospitalist
DX: I48.91 Unspecified atrial fibrillation (principal); I47.1 Supraventricular tachycardia; I71.2 Thoracic aortic aneurysm, without rupture; I10 Essential (primary) hypertension; D64.9 Anemia, unspecified; I08.0 Rheumatic disorders of both mitral and aortic valves; K44.9 Diaphragmatic hernia without obstruction or gangrene; Z87.891 Personal history of nicotine dependence; Z82.49 Family history of ischemic heart disease and other diseases of the circulatory system; Z79.890 Hormone replacement therapy; Z79.899 Other long term (current) drug therapy

== ENCOUNTER 2017-01-07 15:30 | Emergency (ER) | payer OTHER ==
[~2017-01-07] VITALS: Ht 147.3 cm; Wt 63.3 kg
[~2017-01-07 15:30] MED LIST: ELQ25 PO; LISI-729 PO; LUTE15CA PO; MISCTAB78 PO; MULTTAB5 PO; PRMVC TOP; TPRSR25 PO; VITA1CAP4 PO; [UNRECOGNIZED DRUG - CODE] PO
[2017-01-07 15:37] VITALS: O2SAT 97
[2017-01-07 15:39] VITALS: TEMP 36.9; Ht 147.3 cm; Wt 63.3 kg
[2017-01-07] MEDS ORDERED: SODIUM CHLORIDE 0.9% 1000ML 1,000 ML IV STA (16:11)
[2017-01-07] MEDS ORDERED: ONDANSETRON INJ 2 MG/ML 2 ML VIAL IV STA (16:11)
[2017-01-07] MEDS ORDERED: SODIUM CHLORIDE 0.9% 1000ML 250 ML IV STA (16:11)
--- NOTE | 2017-01-07 16:16 | EMERGENCY ROOM VISIT NOTE ---
History Report prepared by Chanell: David Caicedo Under the Supervision of: Dr. Elian Deleon M.D. First contact with patient: 16:01 Chief Complaint: TACHYCARDIA Stated Complaint: TACHYCARDIA Nursing Triage Summary: Patient is from home states she was diagnosed with Afib this past week, started on Metoprolol . Today patient felt like heart was racing. Denies chest pain. Patient also c/o dizziness and diarrhea since starting Metoprolol. + nausea History of Present Illness The patient is a 86 year old female who presents to the Emergency Room with complaints of intermittent, worsening tachycardia that began this past week. The patient stated that her symptoms began ever since she started taking her Metoprolol. This past week, she was diagnosed with Atrial Fibrillation. She was prescribed the Metoprolol to control her heart rate. Ever since she began taking the medication, she started feeling nauseated, faint, dizzy, weak, and has been having diarrhea. She has also been feeling anxious because she states she has always been healthy, and this is making her feel this way. Whenever she feels this way, she lies down which she states helps her symptoms. She denies having any fevers, chills, headache, chest pain, shortness of breath, numbness, melena, and hematochezia. She does not have a medical history of Diabetes. However, it is in her family history. Source of History: patient Onset: This past week Position: other (heart) Symptom Intensity: moderate Quality: other (Tachycardia) Timing: intermittent, worsening Modifying Factors (Relieving): rest Associated Symptoms: + diarrhea, + nausea, + weakness, No SOB, No chest pain , No chills, No fevers, No headache, No hematochezia, No melena, No numbness Note: She feels faint, dizzy, and anxious. Review of Systems See HPI for pertinent positives & negatives. A total of 10 systems reviewed and were otherwise negative. Past Medical & Surgical Medical Problems: (1) Hypertension Old medical records were reviewed. Nurse's notes were reviewed and I agree with. Family History Diabetes mellitus Social History Smoking Status: Former Smoker Drug Use: none Marital Status: Housing Status: lives alone Occupation Status: retired Current/Historical Medications Scheduled Apixaban (Eliquis), 5 MG PO BID Estrogens, Conjugated (Premarin), 1 APPLN TOP DIRECTED Lisinopril (Zestril), 5 MG PO DAILY Lutein-Zeaxanthin (Lutein), 1 TAB PO DAILY Metoprolol Succinate (Toprol Xl), 25 MG PO DAILY Misc Natural Products (Osteo Bi-Flex Advanced Do), 1 TAB PO DAILY Multiple Vitamins W/ Minerals (Centrum), 1 TAB PO DAILY Ondasetron Odt (Zofran Odt), 4 MG SL Q6H Ubiquinol-Vitamin C (Active-Q), 1 TAB PO DAILY Vitamin E (E 1000), 1,000 UNIT PO DAILY Scheduled PRN Lorazepam (Ativan), 0.5 MG PO Q8 PRN for Anxiety/Agitation Allergies Coded Allergies: No Known Allergies (Unverified , 01/07/17) Physical Exam Vital Signs Date Time Temp Pulse Resp B/P Pulse Ox O2 Delivery O2 Flow Rate FiO2 01/07/17 18:25 97 19 147/95 93 01/07/17 17:32 94 16 171/95 98 Room Air 01/07/17 17:08 180 01/07/17 17:02 99 16 165/109 99 Room Air 01/07/17 16:30 97 16 186/108 99 Room Air 01/07/17 15:59 98 16 181/97 99 Room Air 01/07/17 15:43 102 01/07/17 15:39 36.9 108 16 209/113 98 Room Air 01/07/17 15:37 97 Room Air 01/07/17 15:37 98 Room Air Physical Exam General: Non-ill appearing older female. Well developed well nourished in no acute distress, breathing comfortably on room air. Normal speech. Awake, alert, and oriented x3. HEENT: Normal cephalic atraumatic. Pupils are equal round and reactive to light. Extraocular movements are intact. Oropharynx is pink with moist mucous membranes. No swelling of the mouth lips or tongue. Neck: Supple with a midline trachea. No meningeal signs or stiffness, no JVD or bruits. No Stridor. Chest: Clear to auscultation bilaterally. No wheezes or rhonchi. No increased work of breathing. Heart: regular rate and rhythm. Abdomen: Soft nontender, nondistended without rebound guarding or rigidity. Extremities: No cyanosis clubbing or edema. No calf tenderness or assymetry Spine/Back. Non tender to palpation. No CVA tenderness Skin: Good turgor without rashes. Neurologic exam: Cranial nerves two through 12 are intact. Motor and sensation are intact and symmetrical throughout. Medical Decision & Procedures ER Provider Diagnostic Interpretation: Radiology results as stated below per my review and radiologist interpretation: SINGLE VIEW CHEST CLINICAL HISTORY: Atypical chest pain. Tachycardia. FINDINGS: An AP, portable, upright chest radiograph is compared to chest x-ray and chest CT dated 12/27/2016. The examination is degraded buy portable technique and patient rotation. The heart is enlarged. The pulmonary vasculature is noncongestive. Advanced atherosclerotic calcification and aneurysm of the thoracic aorta is unchanged from studies dated 12/27/2016. Chronic interstitial changes are similar to previous. There is no evidence of superimposed pneumonia or pleural effusion. No pneumothorax is seen. The skeletal structures are osteopenic. The bony thorax is grossly intact. IMPRESSION: 1. Cardiomegaly without radiographic evidence of congestive failure. 2. A thoracic aortic aneurysm has not significantly changed in appearance from x -ray and CT studies dated 12/27/2016. 3. Chronic interstitial pulmonary changes as above. There is no evidence of superimposed airspace consolidation or pleural effusion. Electronically signed by: Bola Martinez M.D. 01/07/2017 4:48 PM Dictated Date/Time: 01/07/2017 4:[address] SCAN OF THE BRAIN WITHOUT IV CONTRAST CLINICAL HISTORY: Dizziness COMPARISON STUDY: No priors. TECHNIQUE: Unenhanced axial CT scan of the brain is performed from the vertex to the skull base. CT DOSE: 614.27 mGy,cm FINDINGS: Brain parenchyma: There are age-related involutional changes noting moderate patchy subcortical and periventricular microangiopathic change. There is no hemorrhage, mass effect, or evidence of acute territorial ischemia by CT criteria. Morejon-white matter is preserved. Mineralization is noted in the basal ganglia. No extra-axial fluid collection is seen. Ventricles, sulci, cisterns: Prominent secondary to involutional change. Intracranial vasculature. There is atherosclerotic calcification of the cavernous carotid and vertebral arteries. Calvarium: Unremarkable. Sinuses and mastoids: The visualized paranasal sinuses are clear. The mastoid air cells are well pneumatized. Orbits: The bony orbits are grossly intact. There are bilateral ocular lens implants. IMPRESSION: There is no hemorrhage, mass effect, or evidence of acute territorial ischemia by CT criteria. Electronically signed by: Bola Martinez M.D. 01/07/2017 4:56 PM Dictated Date/Time: 01/07/2017 4:54 PM Laboratory Results 01/07/17 15:38 Red Blood Count 4.25, Mean Corpuscular Volume 81.6, Mean Corpuscular Hemoglobin 26.4, Mean Corpuscular Hemoglobin Concent 32.3, Mean Platelet Volume 8.6, Neutrophils (%) (Auto) 72.8, Lymphocytes (%) (Auto) 16.4, Monocytes (%) (Auto) 8.4, Eosinophils (%) (Auto) 1.6, Basophils (%) (Auto) 0.5, Neutrophils # (Auto) 4.66, Lymphocytes # (Auto) 1.05, Monocytes # (Auto) 0.54, Eosinophils # (Auto) 0.10, Basophils # (Auto) 0.03 01/07/17 15:38 Test 01/07/17 15:38 01/07/17 16:25 01/07/17 17:10 White Blood Count 6.40 K/uL (4.8-10.8) Red Blood Count 4.25 M/uL (4.2-5.4) Hemoglobin 11.2 g/dL (12.0-16.0) Hematocrit 34.7 % (37-47) Mean Corpuscular Volume 81.6 fL (80-100) Mean Corpuscular Hemoglobin 26.4 pg (25-34) Mean Corpuscular Hemoglobin Concent 32.3 g/dl (32-36) Platelet Count 375 K/uL (130-400) Mean Platelet Volume 8.6 fL (7.4-10.4) Neutrophils (%) (Auto) 72.8 % Lymphocytes (%) (Auto) 16.4 % Monocytes (%) (Auto) 8.4 % Eosinophils (%) (Auto) 1.6 % Basophils (%) (Auto) 0.5 % Neutrophils # (Auto) 4.66 K/uL (1.4-6.5) Lymphocytes # (Auto) 1.05 K/uL (1.2-3.4) Monocytes # (Auto) 0.54 K/uL (0.11-0.59) Eosinophils # (Auto) 0.10 K/uL (0-0.5) Basophils # (Auto) 0.03 K/uL (0-0.2) RDW Standard Deviation 44.6 fL (36.4-46.3) RDW Coefficient of Variation 15.0 % (11.5-14.5) Immature Granulocyte % (Auto) 0.3 % Immature Granulocyte # (Auto) 0.02 K/uL (0.00-0.02) Prothrombin Time 12.4 SECONDS (9.0-12.0) Prothromb Time International Ratio 1.2 (0.9-1.1) Activated Partial Thromboplast Time 28.9 SECONDS (21.0-31.0) Partial Thromboplastin Ratio 1.1 Anion Gap 10.0 mmol/L (3-11) Est Creatinine Clear Calc Drug Dose 32.8 ml/min Estimated GFR () 61.3 Estimated GFR (Non- 52.9 BUN/Creatinine Ratio 17.1 (10-20) Calcium Level 9.1 mg/dl (8.5-10.1) Total Bilirubin 0.2 mg/dl (0.2-1) Direct Bilirubin < 0.1 mg/dl (0-0.2) Aspartate Amino Transf (AST/SGOT) 13 U/L (15-37) Alanine Aminotransferase (ALT/SGPT) 17 U/L (12-78) Alkaline Phosphatase 101 U/L (45-117) Total Creatine Kinase 29 U/L (26-192) Creatine Kinase MB < 0.5 ng/ml (0.5-3.6) Creatine Kinase MB Ratio (0-3.0) Total Protein 7.5 gm/dl (6.4-8.2) Albumin 3.8 gm/dl (3.4-5.0) Lipase 78 U/L (73-393) Bedside Troponin I 0.000 ng/ml (0-0.045) Urine Color YELLOW Urine Appearance CLEAR (CLEAR) Urine pH >= 9.0 (4.5-7.5) Urine Specific [place] 1.006 (1.000-1.030) Urine Protein NEG (NEG) Urine Glucose (UA) NEG (NEG) Urine Ketones NEG (NEG) Urine Occult Blood TRACE (NEG) Urine Nitrite NEG (NEG) Urine Bilirubin NEG (NEG) Urine Urobilinogen NEG (NEG) Urine Leukocyte Esterase LARGE (NEG) Urine WBC (Auto) >30 /hpf (0-5) Urine RBC (Auto) 5-10 /hpf (0-4) Urine Hyaline Casts (Auto) 5-10 /lpf (0-5) Urine Epithelial Cells (Auto) 20-30 /lpf (0-5) Urine Bacteria (Auto) NEG (NEG) Urine Yeast (Auto) PRESENT (NONE PRSENT) Laboratory studies as stated above per my review. Medications Administered Medications (Trade) Dose Ordered Sig/Sandra Route Start Time Stop Time Status Last Admin Dose Admin Sodium Chloride 250 ml @ 999 mls/hr Q16M STAT IV 01/07/17 16:11 01/07/17 16:26 DC 01/07/17 16:43 999 MLS/HR Sodium Chloride (Nss 1000ml) 1,000 ml @ 100 mls/hr Q10H STAT IV 01/07/17 16:11 01/07/17 19:02 DC 01/07/17 17:20 100 MLS/HR Ondansetron HCl (Zofran Inj) 4 mg NOW STAT IV 01/07/17 16:11 01/07/17 16:14 DC 01/07/17 16:43 4 MG ECG Indication: tachycardia Rate (beats per minute): 105 Rhythm: sinus tachycardia Findings: PAC (occasional), no acute ischemic change Comparison ECG Date: 28 Dec 2016 Change: The sinus tachycardia has replaced the SVT. ED Course 1601: Past medical records reviewed. The patient was evaluated in room A2, and a complete history and physical examination were performed. 1611: Ordered Zofran Inj 4 mg IV, Sodium Chloride 1000 ml @ 100 mls/hr IV, Sodium Chloride 250 ml @ 999 mls/hr IV 1715: The patient is feeling well. Her heart rate went up to 160/180 while she was up walking around. 1744: I reassessed the patient at this time. She is still feeling well. She wants to go home. 175: At this time, I spoke with Dr. Hoang about the patient's case. He said that we could admit her for observation. However, the patient adamantly declines admission. She would like something for anxiety and nausea. She will follow up with Dr. Heath. 1815: Ordered Ondansetron HCl 1 homepack PO, Lorazepam 1 homepack PO 1820: Upon reevaluation, the patient is resting. I discussed the results and treatment plan with her. She verbalized agreement of the treatment plan. The patient was discharged home. Medical Decision Differentials include, but are not limited to: Arrhythmia, electrolyte or metabolic abnormality, acute coronary syndrome, intracranial process, and anxiety. This patient comes in as described above. She was placed in room A2. She is feeling dizzy. She thinks some this could be anxiety. she's been having this for several days since she left the hospital. She appears well. She has stable vital signs. She does not appear to be in A. fib at present but is has sinus rythym with some ectopy. IV access was established and she was hydrated with IV normal saline. she was given Zofran IV for nausea. Chest x-ray and head CT were obtained. she has no significant electrolyte or metabolic abnormalities. She is not anemic. She has nothing to suggest infection or sepsis. She has no acute electrolyte or metabolic abnormalities. She was reassessed frequently. She says that she feels much better and wants to go home. The nurse noted that she had one episode where heart rate went up ever 160 -180 after getting up the patient nut the patient was asymptomatic. with this I suggested that we admit her for further treatment elevation, she adamantly denies. She just wants only for anxiety and nausea. I will have her use Ativan 0.5 mg every 8 hours if needed and to use this sparingly and I warned her that it could make her drowsy and be very careful getting up and down and do not take before drinking, driving, working. For nausea, she can use Zofran. She should follow-up with Dr. Heath with the next couple days for recheck. She does have appointment on . She should return to ER if: Worsening of symptoms, chest pain, shortness of breath, fever or chills, any new problems or concerns. She was happy with the plan and discharged to home. Consults Time Called: 1749 Consulting Physician: Dr. Hoang - [facility] [place] Returned Call: [phone] I spoke with him about the patient's case. Impression Primary Impression: Tachycardia Additional Impression: Anxiety Scribe Attestation The scribe's documentation has been prepared under my direction and personally reviewed by me in its entirety. I confirm that the note above accurately reflects all work, treatment, procedures, and medical decision making performed by me. Departure Information Dispostion Home / Self-Care Prescriptions Lorazepam (ATIVAN) 0.5 Mg Tab 0.5 MG PO Q8 Y for Anxiety/Agitation, #10 TAB Prov: Elian Deleon M.D. 01/07/17 Ondasetron Odt (ZOFRAN ODT) 4 Mg Tab 4 MG SL Q6H for Nausea, #14 TAB Prov: Elian Deleon M.D. 01/07/17 Referrals Onur Heath M.D. (PCP) Forms HOME CARE DOCUMENTATION FORM, IMPORTANT VISIT INFORMATION, WORK / SCHOOL INSTRUCTIONS Patient Instructions My [facility] Additional Instructions Rest. Drink plenty of fluids. Use Zofran 4 mg every 6 hours if needed for nausea or vomiting For anxiety, may use Ativan 0.5 mg every 8 hours as needed Ativan may make you drowsy and do not take before drinking, driving, working Be careful when getting up and down after taking the Ativan Follow-up with Dr. Heath this week for recheck. Return to the ER if: Chest pain, shortness of breath, worsening of symptoms, lightheadedness, dizziness, any new problems or concerns. Problem Qualifiers
[2017-01-07] MEDS ORDERED: METO25TA3 PO (16:18)
[2017-01-07] MEDS ORDERED: APIX1TAB PO (16:18)
[2017-01-07 16:21] LABS: BASO % 0.5 %; BASO ABS # 0.03 K/uL (0-0.2); COMPLETE YES; EOS % 1.6 %; HEMATOCRIT 34.7 % (37-47); IG% 0.3 %; LYMPH % 16.4 %; LYMPH ABS # 1.05 K/uL (1.2-3.4); MEAN CELL VOLUME 81.6 fL (80-100); MEAN CORPUSCULAR HEMOGLOBIN 26.4 pg (25-34); MEAN CORPUSCULAR HGB CONC 32.3 g/dl (32-36); MEAN PLATELET VOLUME 8.6 fL (7.4-10.4); MONO % 8.4 %; NEUT % 72.8 %; PLATELET COUNT 375 K/uL (130-400); RED BLOOD COUNT 4.25 M/uL (4.2-5.4)
[2017-01-07 16:26] LABS: INR 1.2 (0.9-1.1); PARTIAL THROMBOPLASTIN RATIO 1.1; PROTHROMBIN TIME (PATIENT) 12.4 SECONDS (9.0-12.0)
[2017-01-07 16:39] LABS: ALT/SGPT 17 U/L (12-78); AST/SGOT 13 U/L (15-37); BLOOD UREA NITROGEN 17 mg/dl (7-18); BUN/CREATININE RATIO 17.1 (10-20); CALCIUM 9.1 mg/dl (8.5-10.1); CARBON DIOXIDE 28 mmol/L (21-32); CHLORIDE 104 mmol/L (98-107); CREATININE 0.97 mg/dl (0.60-1.20); GLUCOSE 127 mg/dl (70-99); POTASSIUM 3.5 mmol/L (3.5-5.1); SODIUM 142 mmol/L (136-145)
[2017-01-07 16:44] LABS: ALKALINE PHOSPHATASE 101 U/L (45-117)
[2017-01-07 17:26] LABS: MANUAL MICROSCOPIC REQUIRED? NO; REVIEW REQ? YES; URINE APPEARANCE CLEAR (CLEAR); URINE BILIRUBIN NEG (NEG); URINE COLOR YELLOW; URINE EPITHELIAL CELL AUTO 20-30 /lpf (0-5); URINE NITRITE NEG (NEG); URINE PH >= 9.0 (4.5-7.5); URINE SPECIFIC GRAVITY 1.006 (1.000-1.030); UROBILINOGEN NEG (NEG)
[2017-01-07] MEDS ORDERED: ONDA4TAB10 SL (18:08)
[2017-01-07] MEDS ORDERED: LORA-741 PO (18:08)
--- NOTE | 2017-01-07 18:11 | DIAGNOSTIC IMAGING REPORT ---
CT SCAN OF THE BRAIN WITHOUT IV CONTRAST CLINICAL HISTORY: Dizziness. COMPARISON STUDY: No priors. TECHNIQUE: Unenhanced axial CT scan of the brain is performed from the vertex to the skull base. CT DOSE: 614.27 mGy.cm FINDINGS: Brain parenchyma: There are age-related involutional changes noting moderate patchy subcortical and periventricular microangiopathic change. There is no hemorrhage, mass effect, or evidence of acute territorial ischemia by CT criteria. Morejon-white matter is preserved. Mineralization is noted in the basal ganglia. No extra-axial fluid collection is seen. Ventricles, sulci, cisterns: Prominent secondary to involutional change. Intracranial vasculature: There is atherosclerotic calcification of the cavernous carotid and vertebral arteries. Calvarium: Unremarkable. Sinuses and mastoids: The visualized paranasal sinuses are clear. The mastoid air cells are well pneumatized. Orbits: The bony orbits are grossly intact. There are bilateral ocular lens implants. IMPRESSION: There is no hemorrhage, mass effect, or evidence of acute territorial ischemia by CT criteria. Electronically signed by: Bola Martinez M.D. 01/07/2017 4:56 PM Dictated Date/Time: 01/07/2017 4:54 PM
--- NOTE | 2017-01-07 18:11 | DIAGNOSTIC IMAGING REPORT ---
SINGLE VIEW CHEST CLINICAL HISTORY: Atypical chest pain. Tachycardia. FINDINGS: An AP, portable, upright chest radiograph is compared to chest x-ray and chest CT dated 12/27/2016. The examination is degraded by portable technique and patient rotation. The heart is enlarged. The pulmonary vasculature is noncongested. Advanced atherosclerotic calcification and aneurysm of the thoracic aorta is unchanged from studies dated 12/27/2016. Chronic interstitial changes are similar to previous. There is no evidence of superimposed pneumonia or pleural effusion. No pneumothorax is seen. The skeletal structures are osteopenic. The bony thorax is grossly intact. IMPRESSION: 1. Cardiomegaly without radiographic evidence of congestive failure. 2. A thoracic aortic aneurysm has not significantly changed in appearance from x-ray and CT studies dated 12/27/2016. 3. Chronic interstitial pulmonary changes as above. There is no evidence of superimposed airspace consolidation or pleural effusion. Electronically signed by: Bola Martinez M.D. 01/07/2017 4:48 PM Dictated Date/Time: 01/07/2017 4:45 PM
[2017-01-07] MEDS ORDERED: ATIVAN 1MG HOMEPACK PO ONE (18:15)
[2017-01-07] MEDS ORDERED: ONDANSETRON HOME PACK 4MG OD TAB PO ONE (18:15)
[2017-01-07 18:25] VITALS: BP 147/95; PULSE 97; O2SAT 93
== END 2017-01-07 18:30 | disposition home or self-care (01) ==
LOC: EDBD 15:30 → C.EDA 15:31
DX: R00.0 Tachycardia, unspecified (principal); F41.9 Anxiety disorder, unspecified; I49.1 Atrial premature depolarization; I48.91 Unspecified atrial fibrillation; R19.7 Diarrhea, unspecified; R11.0 Nausea; R53.1 Weakness; I10 Essential (primary) hypertension; Z79.899 Other long term (current) drug therapy; Z87.891 Personal history of nicotine dependence; Z83.3 Family history of diabetes mellitus

== ENCOUNTER 2017-02-05 18:58 | Emergency (ER) | payer OTHER ==
[~2017-02-05] VITALS: Ht 147.3 cm; Wt 59.5 kg
[~2017-02-05 18:58] MED LIST changes: +APIX1TAB PO; -ELQ25 PO; +METO25TA3 PO; +ONDA4TAB10 SL; -TPRSR25 PO
[2017-02-05 19:08] VITALS: TEMP 36.5; Ht 147.3 cm; Wt 59.5 kg
[2017-02-05] MEDS ORDERED: LORAZEPAM 0.5 MG TAB SL STA (19:45)
[2017-02-05 19:52] VITALS: O2SAT 95
[2017-02-05] MEDS ORDERED: DILT-113 PO (20:11)
[2017-02-05] MEDS ORDERED: LORA0.5T12 PO (20:11)
[2017-02-05] MEDS ORDERED: GARL1CAP6 (20:11)
[2017-02-05] MEDS ORDERED: XRL20 PO (20:11)
--- NOTE | 2017-02-05 20:14 | EMERGENCY ROOM VISIT NOTE ---
ED Visit Note First contact with patient: 19:35 I have seen and examined this patient with Tono Mark and generally agree with the treatment plan as discussed. Problem List Medical Problems: (1) Hypertension Status: Chronic Current/Historical Medications Scheduled Diltiazem Hcl Ext Rel (Tiazac), 180 MG PO QAM Estrogens, Conjugated (Premarin), 1 APPLN TOP DIRECTED Lisinopril (Zestril), 5 MG PO DAILY Lutein-Zeaxanthin (Lutein), 1 TAB PO DAILY Misc Natural Products (Osteo Bi-Flex Advanced Do), 1 TAB PO DAILY Multiple Vitamins W/ Minerals (Centrum), 1 TAB PO DAILY Ondasetron Odt (Zofran Odt), 4 MG SL Q6H Rivaroxaban (Xarelto), 20 MG PO DAILY Ubiquinol-Vitamin C (Active-Q), 1 TAB PO DAILY Vitamin E (E 1000), 1,000 UNIT PO DAILY Scheduled PRN Lorazepam (Lorazepam), 0.5 MG PO DAILY PRN for Anxiety Miscellaneous Medications Garlic (Garlic), Unknown Dose Allergies Coded Allergies: No Known Allergies (Unverified , 02/05/17) Vital Signs Date Time Temp Pulse Resp B/P Pulse Ox O2 Delivery O2 Flow Rate FiO2 02/05/17 19:52 95 Room Air 02/05/17 19:12 108 02/05/17 19:08 36.5 110 24 187/125 95 Room Air Laboratory Results Test 02/05/17 19:45 Creatine Kinase MB Ratio (0-3.0) Medications Administered Medications (Trade) Dose Ordered Sig/Sandra Route Start Time Stop Time Status Last Admin Dose Admin Lorazepam (Ativan Tab) 0.5 mg NOW STAT SL 02/05/17 19:45 02/05/17 19:47 DC 02/05/17 19:54 0.5 MG Departure Information Referrals Onur Heath M.D. (PCP) Patient Instructions My [facility]
[2017-02-05 20:19] LABS: BASO % 0.6 %; BASO ABS # 0.04 K/uL (0-0.2); COMPLETE YES; EOS % 0.8 %; HEMATOCRIT 32.5 % (37-47); IG% 0.2 %; LYMPH % 14.7 %; LYMPH ABS # 0.91 K/uL (1.2-3.4); MEAN CELL VOLUME 79.7 fL (80-100); MEAN CORPUSCULAR HEMOGLOBIN 25.5 pg (25-34); MEAN PLATELET VOLUME 8.4 fL (7.4-10.4); MONO % 12.3 %; NEUT % 71.4 %; PLATELET COUNT 357 K/uL (130-400); RED BLOOD COUNT 4.08 M/uL (4.2-5.4); WHITE BLOOD COUNT 6.18 K/uL (4.8-10.8)
--- NOTE | 2017-02-05 20:20 | DIAGNOSTIC IMAGING REPORT ---
CHEST ONE VIEW PORTABLE CLINICAL HISTORY: palp cardiac arrhythmia COMPARISON STUDY: 01/07/2017 FINDINGS: Stable aneurysmal dilatation thoracic aorta. Mild stable cardiomegaly. Mild chronic interstitial change. IMPRESSION: Stable aneurysmal dilatation thoracic aorta. Mild chronic interstitial change. Mild/moderate stable cardiomegaly. Electronically signed by: Augustin Brown M.D. 02/05/2017 8:17 PM Dictated Date/Time: 02/05/2017 8:17 PM
[2017-02-05 20:33] LABS: INR 1.6 (0.9-1.1); PARTIAL THROMBOPLASTIN RATIO 1.4; PROTHROMBIN TIME (PATIENT) 17.4 SECONDS (9.0-12.0)
[2017-02-05 20:35] LABS: ALT/SGPT 13 U/L (12-78); AST/SGOT 13 U/L (15-37); BLOOD UREA NITROGEN 13 mg/dl (7-18); CALCIUM 9.8 mg/dl (8.5-10.1); CARBON DIOXIDE 27 mmol/L (21-32); CHLORIDE 105 mmol/L (98-107); CREATININE 0.95 mg/dl (0.60-1.20); GLUCOSE 115 mg/dl (70-99); MAGNESIUM 2.3 mg/dl (1.8-2.4); POTASSIUM 3.1 mmol/L (3.5-5.1); SODIUM 141 mmol/L (136-145)
[2017-02-05 20:40] LABS: ALKALINE PHOSPHATASE 96 U/L (45-117)
[2017-02-05] MEDS ORDERED: ATIVAN 1MG HOMEPACK ONE (22:09)
[2017-02-05] MEDS ORDERED: ATIVAN 1MG HOMEPACK PO ONE (22:15)
--- NOTE | 2017-02-05 22:16 | EMERGENCY ROOM VISIT NOTE ---
History First contact with patient: 19:35 Chief Complaint: OTHER COMPLAINT Stated Complaint: ALLERGIC REACTION, HTN History of Present Illness The patient is a 86 year old female who presents to the Emergency Department via EMS for evaluation for possible allergic reaction. The patient reports that she recently was changed from Toprol to diltiazem. She took her first dose of diltiazem today. She reports that her mouth became dry and she felt very shaky. Her symptoms have decreased, but she still reports some ongoing shakiness. She has experienced this previously and has used Ativan in the past with successful relief of symptoms. She does not have Ativan prescription at this point. The patient is currently managed by [facility] physician [facility] apartment locator, Dr. Wells. She did not contact their office today. The patient reports some occasional palpitations. She recently was treated for atrial fibrillation. She rates her current discomfort as a 3/10. She denies any headaches, dizziness, blurry vision, double vision, lightheadedness, nausea, vomiting, or abdominal pain. She reports no chest discomfort at this point. Review of Systems A complete 10-point Review of Systems was discussed with the patient, with pertinent positives and negatives listed in the History of Present Illness. All remaining Review of Systems questions can be considered negative unless otherwise specified. Past Medical/Surgical History Medical Problems: (1) Hypertension Family History Diabetes mellitus Social History Smoking Status: Former Smoker Smokeless Tobacco Use: No Alcohol Use: none Drug Use: none Marital Status: Housing Status: lives alone Occupation Status: retired Current/Historical Medications Scheduled Diltiazem Hcl Ext Rel (Tiazac), 180 MG PO QAM Estrogens, Conjugated (Premarin), 1 APPLN TOP DIRECTED Lisinopril (Zestril), 5 MG PO DAILY Lutein-Zeaxanthin (Lutein), 1 TAB PO DAILY Misc Natural Products (Osteo Bi-Flex Advanced Do), 1 TAB PO DAILY Multiple Vitamins W/ Minerals (Centrum), 1 TAB PO DAILY Ondasetron Odt (Zofran Odt), 4 MG SL Q6H Rivaroxaban (Xarelto), 20 MG PO DAILY Ubiquinol-Vitamin C (Active-Q), 1 TAB PO DAILY Vitamin E (E 1000), 1,000 UNIT PO DAILY Scheduled PRN Lorazepam (Lorazepam), 0.5 MG PO DAILY PRN for Anxiety Miscellaneous Medications Garlic (Garlic), Unknown Dose Allergies Coded Allergies: No Known Allergies (Unverified , 02/05/17) Physical Exam Vital Signs Date Time Temp Pulse Resp B/P Pulse Ox O2 Delivery O2 Flow Rate FiO2 02/05/17 22:30 99 20 160/95 94 02/05/17 20:30 97 20 171/94 94 Room Air 02/05/17 19:52 95 Room Air 02/05/17 19:12 108 02/05/17 19:08 36.5 110 24 187/125 95 Room Air Pain Rating (0-10): 4 Physical Exam VITAL SIGNS - Vital signs and nursing notes were reviewed. GENERAL - 86-year-old female appearing her stated age who is in no acute distress. Communicates well with provider and answers questions appropriately. LUNGS - Chest wall symmetric without accessory muscle use, intercostals retractions, or central cyanosis. Normal vesicular breath sounds CTA B/L. No wheezes, rales, or rhonchi appreciated. CARDIAC - RRR with S1/S2. No murmur, rubs, or gallops appreciated. No reproducible tenderness to palpation appreciated over the anterior chest wall. ABDOMEN - Abdominal contour flat and without pulsations or visible masses. BS normoactive all four quadrants. No tenderness, palpable masses, hepatosplenomegaly, or ascites noted. EXTREMITIES - No clubbing or peripheral cyanosis. No pretibial edema present. +3 /5 radial and dorsalis pedis pulses palpated throughout. +5/5 strength noted in UE/LE bilaterally. NEUROLOGIC - Cranial nerves II through XII grossly intact. Sensory intact to light touch throughout. PSYCH - A&Ox3 and cooperates fully with examiner. Pt is very pleasant and interacts well with examiner. Medical Decision & Procedures ER Provider Diagnostic Interpretation: Radiological imaging and reports were reviewed by myself. Radiologist's Interpretation as follows: CHEST ONE VIEW PORTABLE CLINICAL HISTORY: palp cardiac arrhythmia COMPARISON STUDY: 01/07/2017 FINDINGS: Stable aneurysmal dilatation thoracic aorta. Mild stable cardiomegaly. Mild chronic interstitial change. IMPRESSION: Stable aneurysmal dilatation thoracic aorta. Mild chronic interstitial change. Mild/moderate stable cardiomegaly. Laboratory Results 02/05/17 20:05 Red Blood Count 4.08, Mean Corpuscular Volume 79.7, Mean Corpuscular Hemoglobin 25.5, Mean Corpuscular Hemoglobin Concent 32.0, Mean Platelet Volume 8.4, Neutrophils (%) (Auto) 71.4, Lymphocytes (%) (Auto) 14.7, Monocytes (%) (Auto) 12.3, Eosinophils (%) (Auto) 0.8, Basophils (%) (Auto) 0.6, Neutrophils # (Auto ) 4.41, Lymphocytes # (Auto) 0.91, Monocytes # (Auto) 0.76, Eosinophils # (Auto ) 0.05, Basophils # (Auto) 0.04 02/05/17 20:05 Test 02/05/17 20:05 02/05/17 20:08 White Blood Count 6.18 K/uL (4.8-10.8) Red Blood Count 4.08 M/uL (4.2-5.4) Hemoglobin 10.4 g/dL (12.0-16.0) Hematocrit 32.5 % (37-47) Mean Corpuscular Volume 79.7 fL (80-100) Mean Corpuscular Hemoglobin 25.5 pg (25-34) Mean Corpuscular Hemoglobin Concent 32.0 g/dl (32-36) Platelet Count 357 K/uL (130-400) Mean Platelet Volume 8.4 fL (7.4-10.4) Neutrophils (%) (Auto) 71.4 % Lymphocytes (%) (Auto) 14.7 % Monocytes (%) (Auto) 12.3 % Eosinophils (%) (Auto) 0.8 % Basophils (%) (Auto) 0.6 % Neutrophils # (Auto) 4.41 K/uL (1.4-6.5) Lymphocytes # (Auto) 0.91 K/uL (1.2-3.4) Monocytes # (Auto) 0.76 K/uL (0.11-0.59) Eosinophils # (Auto) 0.05 K/uL (0-0.5) Basophils # (Auto) 0.04 K/uL (0-0.2) RDW Standard Deviation 44.9 fL (36.4-46.3) RDW Coefficient of Variation 15.4 % (11.5-14.5) Immature Granulocyte % (Auto) 0.2 % Immature Granulocyte # (Auto) 0.01 K/uL (0.00-0.02) Prothrombin Time 17.4 SECONDS (9.0-12.0) Prothromb Time International Ratio 1.6 (0.9-1.1) Activated Partial Thromboplast Time 36.8 SECONDS (21.0-31.0) Partial Thromboplastin Ratio 1.4 Anion Gap 9.0 mmol/L (3-11) Est Creatinine Clear Calc Drug Dose 32.4 ml/min Estimated GFR () 62.9 Estimated GFR (Non- 54.2 BUN/Creatinine Ratio 14.0 (10-20) Calcium Level 9.8 mg/dl (8.5-10.1) Magnesium Level 2.3 mg/dl (1.8-2.4) Total Bilirubin 0.5 mg/dl (0.2-1) Aspartate Amino Transf (AST/SGOT) 13 U/L (15-37) Alanine Aminotransferase (ALT/SGPT) 13 U/L (12-78) Alkaline Phosphatase 96 U/L (45-117) Total Creatine Kinase 31 U/L (26-192) Creatine Kinase MB < 0.5 ng/ml (0.5-3.6) Creatine Kinase MB Ratio (0-3.0) Total Protein 7.3 gm/dl (6.4-8.2) Albumin 3.7 gm/dl (3.4-5.0) Globulin 3.6 gm/dl (2.5-4.0) Albumin/Globulin Ratio 1.0 (0.9-2) Bedside Troponin I 0.020 ng/ml (0-0.045) Medications Administered Medications (Trade) Dose Ordered Sig/Sandra Route Start Time Stop Time Status Last Admin Dose Admin Lorazepam (Ativan Tab) 0.5 mg NOW STAT SL 02/05/17 19:45 02/05/17 19:47 DC 02/05/17 19:54 0.5 MG Lorazepam (Ativan 1MG Home Pack) 1 homepack STK-MED ONCE .ROUTE 02/05/17 22:09 02/05/17 22:10 DC 02/05/17 22:21 1 HOMEPACK Procedure Patient was placed on the monitor technician and monitored throughout the entire extent of their stay. In addition, the patient's pulse oximetry was monitored throughout the entire stay. Any abnormalities or aberrancies were addressed appropriately. ECG Indication: palpitations Rate (beats per minute): 108 Rhythm: atrial fibrillation Findings: nonspecific-ST abn Change: no significant change (from 01/07/2017.) ED Course Patient was seen and evaluated by myself. Previous emergency department visit notes and hospitalizations were reviewed. Labs were drawn, saline lock in place. EKG and chest x-rays were obtained. Patient was treated with 0.5 mg sublingual Ativan. Laboratory results demonstrate no acute leukocytosis. The patient is not significantly anemic. There are no significant electrolyte abnormalities. Cardiac enzymes are negative. Troponin is negative. Chest x- ray stable. Patient was reevaluated and reports complete resolve of symptoms. Case was reviewed with my attending physician who agrees the diagnostic approach treatment plan. The patient was encouraged to follow-up with her primary care provider from today's visit. She was educated on worrisome symptoms for return visit to the emergency department. Patient discharged home in good condition. Medical Decision Given the patient's presentation and stated complaints, I did elect to perform the above-mentioned workup. The patient presents today with question of allergic reaction to medication. She was recently changed to diltiazem from metoprolol. She reports feeling shaky after taking the medication. Her symptoms completely is resolved with sublingual Ativan. Her EKG demonstrated no acute findings. Cardiac enzymes are otherwise unremarkable. The patient will continue to follow up with her apartment locator and primary care provider from today's visit. She will return to the emergency department for any changing or worsening symptoms. Patient discharged home in good condition. In the evaluation and treatment of this patient, the following differential diagnoses were considered: PR, ASC, Dysrhythmia, Angina, Mediastinitis, GERD, Esophagitis, PE, Pneumonia, Bronchitis, Costochondritis, Rib Fracture, Zoster. Impression Primary Impression: Shakiness Departure Information Dispostion Home / Self-Care Condition GOOD Referrals Onur Heath M.D. (PCP) Patient Instructions [facility] Additional Instructions Please follow-up with your primary care provider from today's visit. Please use the Ativan twice daily as needed for any shakiness or anxiety. Follow-up with Dr. Heath tomorrow as discussed. Return for any changing or worsening symptoms.
[2017-02-05 22:30] VITALS: BP 160/95; PULSE 99; O2SAT 94
== END 2017-02-05 22:32 | disposition home or self-care (01) ==
LOC: EDBD 18:58 → C.EDB 18:59
DX: T78.40XA Allergy, unspecified, initial encounter (principal); X58.XXXA Exposure to other specified factors, initial encounter; I10 Essential (primary) hypertension; Z79.899 Other long term (current) drug therapy; Z87.891 Personal history of nicotine dependence; Z82.49 Family history of ischemic heart disease and other diseases of the circulatory system